=== PATIENT | male | born 1960 | race Caucasian/White ===

== ENCOUNTER → 2020-07-06 11:25 | Outpatient (BNVA) | payer OTHER, SELFPAY | PROVIDERS: Referring Provider Internal Medicine; Visit Provider Internal Medicine Cardiovascular Disease | DX: I13.0 Hypertensive heart and chronic kidney disease with heart failure and stage 1 through stage 4 chronic kidney disease, or unspecified chronic kidney disease (principal); I50.33 Acute on chronic diastolic (congestive) heart failure; N18.9 Chronic kidney disease, unspecified; R60.9 Edema, unspecified; Z79.01 Long term (current) use of anticoagulants; R06.02 Shortness of breath; R07.89 Other chest pain; I25.10 Atherosclerotic heart disease of native coronary artery without angina pectoris; E78.5 Hyperlipidemia, unspecified | CPT/HCPCS: 80048; 83880; 84443; 85025 ==

== ENCOUNTER 2020-08-04 08:22 | Outpatient (CLI) | payer OTHER, SELFPAY ==
--- NOTE | 2020-08-04 09:04 | ECG_ITS ---
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 Interpretive Statements NAME OF STUDY: LEXISCAN SESTAMIBI STRESS TEST INDICATION: Chest Pain, PROCEDURE: At the baseline, the EKG revealed sinus bradycardia with right bundle branch block. Nonspecific ST-T changes in the precordial leads. Left axis deviation. The baseline blood pressure was 139/88 mm Hg with a heart rate of 53 beats/min. Lexiscan was infused over a period of 20 seconds. A total of 0.4 milligrams of Lexiscan was infused. The stress phase was continued for a total of 5 minutes. Heart rate at the end of the stress phase was 67 with a blood pressure 137/76. The EKG at the peak infusion revealed no significant changes. Sestamibi was injected 20 seconds after the Lexiscan infusion. Blood pressure at the end of the recovery phase was 146/83 with a heart rate of 66 per minute. CONCLUSION: 1. No significant EKG changes with the LexiScan infusion 2. No LexiScan induced chest pain or cardiac arrhythmia 3. Normal blood pressure and heart rate response 4. Sestamibi/sestamibi perfusion scan pending; see separate report. Electronically Signed On 08-11-2020 9:02:17 CDT by Dorian Sapp M.D. [id number]
--- NOTE | 2020-08-04 09:05 | NMCV_ITS ---
NM chani perf SPECT r/s* [id number] Atul Fong Age: 60 Gender: M : 1960 Exam Date: 08/04/2020 10:23 Ordering Phys: Dorian Sapp MD ([email or web address]) Technologist: DAVE Roman Exam Location: [facility] Indications: CHEST PAIN STRESS TEST Please [facility] IMAGE PROTOCOL Rest/Stress 1 Lexiscan Day Radiopharmaceutical Dose (mCi) Administration Site Administered by Rest: Tc-99m 10.6 IV DAVE Roman Sestamibi Stress:Tc-99m 33.0 IV DAVE Lovelace Sestamibi Rest: 04-Aug-2020 60 Discovery 630 Stress: 04-Aug-2020 30 Discovery 630 0.4mg Lexiscan. Images obtained in supine and prone position. SPECT RESULTS Technical Quality: Good Raw Data Analysis: Normal Image Corrections: No attenuation or motion correction applied Summed Stress Score: 9 Summed Rest Score: 3 Summed Difference Score: 6 PERFUSION FINDINGS Moderate to large areas of slightly decreased tracer uptake was noted in the basal and mid inferolateral, anterolateral, mid anterior and mid inferior wall regions. Some reversibility was noted in the inferolateral and anterolateral regions with the supine imaging. However the prone imaging, no significant reversible defects were noted. FUNCTIONAL RESULTS (calculated via Gated SPECT) Stress Image LV EF (%): 65 Stress EDV (mL):135 TID: 1.05 Stress ESV (mL):47 FUNCTIONAL FINDINGS: Segmental wall motion analysis revealing no gross wall motion abnormalities. IMPRESSIONS 1. Myocardial perfusion imaging revealing inconsistent areas of reversible defect in the anterolateral and inferolateral wall regions, possibly related to attenuation artifacts. 2. Normal LV ejection fraction of 65%. 3. LV wall motion analysis revealing no gross wall motion normalities. 4. LV volume, upper limit of normal. Possibly no significant coronary ischemia, based on above findings Dr Dorian Sapp MD [facility] (Electronically Signed) Final Date: 04 August 2020 16:58 S
[2020-08-04 09:49] VITALS: BMI 40.5
[2020-08-04] MEDS: regadenoson 0.4 Mg/5 ml Syringe IVP (10:59)
[2020-08-04 12:12] VITALS: BP 146/83; PULSE 67
--- NOTE | 2020-08-04 13:30 | USCV_ITS ---
Atul Fong Age: 60 Gender: M : 1960 Exam Date: 08/04/2020 12:06 Ordering Phys: Dorian Sapp MD ([email or web address]) Technologist: Cele Arana Exam Location: [facility] [place] Indication: OTHER CHEST PAIN BP: / HR: 57 Rhythm: Sinus Technical Quality: Adequate MEASUREMENTS (Male / Female) Normal Values 2D ECHO LV Diastolic Diameter PLAX 3.9 cm 4.2 - 5.9 / 3.9 - 5.3 cm LV Systolic Diameter PLAX 2.9 cm LV Chamber Size 2.3 cm IVS Diastolic Thickness 1.8 cm 0.6 - 1.0 / 0.6 - 0.9 cm IVS Systolic Thickness 1.5 cm LVPW Diastolic Thickness 2.5 cm 0.6 - 1.0 / 0.6 - 0.9 cm LVPW Systolic Thickness 2.9 cm RV Chamber Size 1.5 cm LVOT Diameter 2.1 cm LV Ejection Fraction 2D Teich 53.2 % LA Diameter 3.9 cm LA Width 3.5 cm LA Height 4.2 cm RA Width 3.5 cm RA Height 3.9 cm Aorta at Sinotubular Diameter 2.8 cm M-MODE LV Diastolic Diameter MM 6.7 cm 4.2 - 5.9 / 3.9 - 5.3 cm LV Systolic Diameter MM 3.5 cm LV Ejection Fraction MM Teich 78.4 % IVS Diastolic Thickness MM 1.2 cm 0.6 - 1.0 / 0.6 - 0.9 cm IVS Systolic Thickness MM 1.6 cm LVPW Diastolic Thickness MM 0.7 cm 0.6 - 1.0 / 0.6 - 0.9 cm LVPW Systolic Thickness MM 1.5 cm Aortic Annulus Diameter 3.6 cm LA Ao Ratio MM 1.2 MV E Point Septal Separation 0.7 cm DOPPLER AV Peak Velocity 155.0 cm/s LVOT Peak Velocity 113.0 cm/s AV Area Cont Eq vti 3.2 cm squared AV Area Cont Eq pk 2.5 cm squared MV Area PHT 2.5 cm squared Mitral E to A Ratio 0.7 MV E' Velocity 38.0 cm/s Mitral E to MV E' Ratio 6.4 Mitral E to LV E' Lateral Ratio 6.2 Mitral E to LV E' Septal Ratio 6.7 TR Peak Velocity 180.3 cm/s TR Peak Gradient 13.0 mmHg TV Peak E Velocity 81.0 cm/s PV Peak Velocity 75.0 cm/s RV Acceleration Time 0.1 s RV Ejection Time 0.3 s RV AcT/ET 0.4 FINDINGS Left Ventricle Normal left ventricular size and systolic function, EF 65%.no regional wall motion abnormalities. Grade I/IV diastolic dysfunction (abnormal relaxation filling pattern), normal to mildly elevated filling pressures. Mild concentric left ventricle hypertrophy Right Ventricle The right ventricle is normal in size and function. Right Atrium The right atrium is normal in size. Left Atrium Normal left atrial size. Mitral Valve Minimally thickened anterior mitral leaflet Aortic Valve No gross abnormalities noted Tricuspid Valve No gross abnormalities noted Pulmonic Valve Pulmonic valve not well visualized. Pericardium Normal pericardium without effusion. Aorta Normal ascending aorta dimension. CONCLUSIONS Normal left ventricular size and systolic function, EF 65%.no regional wall motion abnormalities. Grade I/IV diastolic dysfunction (abnormal relaxation filling pattern), normal to mildly elevated filling pressures. Minimally thickened anterior mitral leaflet. No significant stenotic or regurgitant lesions. Normal cardiac chamber sizes. There is no pericardial effusion. There are no intracardiac masses. No previous study is available for comparison. Dr Dorian Sapp MD FAC (Electronically Signed) Final Date: 04 August 2020 17:21 S
== END 2020-08-04 08:23 | disposition home or self-care (01) ==
LOC: RAD 08:23 → CDL 09:06
PROVIDERS: Visit Provider Internal Medicine Cardiovascular Disease
DX: R07.89 Other chest pain (principal)
CPT/HCPCS: 78452; 93017; 93306; A9500; J2785

== ENCOUNTER → 2020-12-20 15:13 | Outpatient (BNVA) | payer OTHER, SELFPAY | PROVIDERS: Visit Provider Internal Medicine Cardiovascular Disease | DX: Z01.818 Encounter for other preprocedural examination (principal); R07.89 Other chest pain; R07.9 Chest pain, unspecified; R06.02 Shortness of breath; Z79.01 Long term (current) use of anticoagulants; R53.1 Weakness; I25.10 Atherosclerotic heart disease of native coronary artery without angina pectoris; R60.9 Edema, unspecified; E78.5 Hyperlipidemia, unspecified; I10 Essential (primary) hypertension | CPT/HCPCS: 80053; 85025; 85610; 86850; 86900; 87635 ==

== ENCOUNTER 2020-12-23 10:44 | Day surgery (SDC) | payer OTHER, SELFPAY ==
[2020-12-23] VITALS (36 sets, daily range): BP systolic 108–165; BP diastolic 58–103; PULSE 42–51; RESP 11–22; TEMP 36.7; O2SAT 92–99; BMI 42.4
--- NOTE | 2020-12-23 11:32 | XACV_ITS ---
Exam Room: 1 Ht: 183 cm Wt: 142 kg BSA: 2.75 m2 Gender: Male : 1960 Any Known Allergies: No known allergies Exam Priority: Routine Procedure(s): Procedure Description: Diagnostic procedure Procedure Description: PCI procedure Procedure Description: Left Heart Catheterization Procedure Description: Left ventriculography Procedure Description: Drug Eluting Coronary Stent Procedure Description: PTCA Procedure Description: Coronary Angiography Diagnostic Cath Status: Elective Diagnostic Findings * Coronary angiography shows right dominance. * The left main is a medium caliber vessel with no significant stenotic lesion. * The left anterior descending artery is a medium caliber vessel which appears to wrap around the LV apex. Proximally LAD was found to have around 50% eccentric narrowing. Mid LAD was found to have a long stented segment. In the proximal part of the stent, there is around 40% in-stent narrowing. The distal part of the stented segment was found to have around 70 to 80% in-stent stenosis. This area was found to be hazy. The ostium of the first septal mid wife was found to have around 50% narrowing. The first diagonal branch also was found to have around 50 to 60% ostial narrowing. This appears to be a jailed lesion. The LAD distally was found to have minimal intimal irregularities. * The left circumflex artery is a medium caliber nondominant vessel which gives of a high obtuse marginal branch. The circumflex proper and the first obtuse marginal branches were found to have mild diffuse intimal regularities with no significant stenotic lesions. * The right coronary artery is a medium caliber dominant vessel which was found to have mild diffuse disease in the proximal segment and also in the PLV branch. No significant stenotic lesions were noted. PCI Status: Elective PCI Indication: New Onset Angina <= 2 months Interventional Findings * Proximal Left Anterior Descendin% stenosis treated with a AB TREK 2.50X12 RX BALLOON, ROSA MARIA R ELZA 3.0X18 MONICA, and ROSA MARIA COTA EUPHORA RX 3.76Q99CR BALLOON. 0% residual stenosis, JULISSA: 3 flow. Conclusions 1. Normal left ventricular systolic function. Ejection fraction of 50%. 2. This is a 60-year-old white male with history of hypertension, dyslipidemia and atherosclerotic heart disease, status post PCI of the LAD, presenting with increasing episodes of chest pain and shortness of breath. He had a myocardial perfusion imaging , few months ago which was unremarkable. In view of the patient ongoing worsening of symptoms, for further evaluation of his coronary status, a cardiac catheterization was recommended. Patient underwent left heart catheterization with left and right coronary angiogram and LV angiogram today. The findings are as follows. 3. High-grade in-stent stenosis in the mid LAD. Mild to moderate disease in the proximal to mid LAD. Mild diffuse disease in the other vessels. LV ejection fraction of 50% with a mild diffuse hypokinesia of the anteroapical region. LVEDP of 14 mmHg. 4. Proximal Left Anterior Descending was treated with a Balloon, Drug Eluting Stent, and Balloon. Recommendations * 1-Return to inpatient for close monitoring and routine cath care2-Risk factor modification for secondary prevention3-Statin and aspirin 81 mg life--long, if tolerated * 4- * C * continue Plavix 75mg p.o. daily for at least one year. We will assess at the end of one year again to continue if further or not * 5-Continue optimal medical management * 6-Follow up with Dr. Katya Sapp * in four weeks and your primary care in 10 days. Diagnostic RX Recommendation: PCI w/o planned CABG Ventriculography Ejection Fraction: 50.0 % LV EDP: 14 mmHg Left Ventriculography Findings: * LV gram was performed in the HERNANDEZ position. The LV cavity is of normal size. There is mild diffuse hypokinesia of the anteroapical region. The overall ejection fraction is around 50%. Pressures Phase:Rest AO : 138 / 80 ( 95 ) @ 11:42:00 AM 129 / 96 ( 103 ) @ 11:44:00 AM 139 / 90 ( 110 ) @ 11:49:00 AM 119 / 19 ( 37 ) @ 11:55:00 AM 118 / 58 ( 82 ) @ 12:09:00 PM 118 / 79 ( 79 ) @ 12:10:00 PM 113 / 56 ( 78 ) @ 12:12:00 PM LV : 120 / -6 / 14 @ 11:54:00 AM 116 / -11 / 15 @ 11:55:00 AM Clinical Evaluation EBL: 5mL-10mL Procedural Details Pre-Procedure Time Out. Identified patient by full name and date of as verbalized by the patient/guarantor. Does the consent match the physician's order: Yes. Accurate & Complete Informed Consent: Yes. Inpatient/Outpatient History & Physical on Chart: Yes. If H&P is completed, is and addenduem needed: No; If yes, is the addendum complete: N/A. Visualize and Verify Site with Patient/Guarantor: N/A. Relevant Radiology Images available: Yes. Pre-op teaching completed and patient verbalized understanding. The risks, benefits, and alternatives of sedation and/or procedure were discussed by physician. The patient agrees to continue. Procedure started. [facility] Clinical Fraility Score: 3: Managing Well. Park Interpretive Specialist Indications: Suspected CAD. Chest Pain Symptom Assessment: Typical Angina Symptoms. Correct patient, site and procedure confirmed by cath team. Current diagnosis: Chest Pain. PERRLA. Strong, equal hand planer off bearer bilaterally. Lungs clear x 5 lobes. IV Site on Arrival: 18 gauge in the left anticubital. IV Fluids: 0.9% NaCl at KVO. 0 mL infused prior to cardiac cath technician. Pre Procedural Pulses: right dorsalis pedis was 2+. Pre Procedural Pulses: left dorsalis pedis was 1+. Pre Procedural Pulses: right posterior tibial was 2+. Pre Procedural Pulses: left posterior tibial was 1+. Pre Procedural Pulses: bilateral radial was 2+. Oxygen started at 2liters/min via nasal canula. right groin was prepped with chloroprep then draped in the usual sterile fashion. Baseline sample Acquired. HR: 44 BPM. right radial was prepped with chloroprep then draped in the usual sterile fashion. Current Diagnosis : Chest Pain. Physician arrived. Physician scrubbed in. Immediate Pre-Procedure Time Out. Correct Patient: Yes; Correct Procedure: Yes; Correct Site: Yes; Correct Patient Position: Yes; Correct Supplies: Yes; Dried Flammable Prep: Yes; Blood Products Available: N/A;. Lidocaine 1% infiltrated to the right radial. Arterial access obtained. A 5 danish Arpit catheter in over wire. Catheter removed over the exchange wire. A 5 danish TIG catheter in over wire. Catheter removed over the exchange wire. A 5 danish Aprit catheter in over wire. Catheter removed over the exchange wire. TR band placed. Hemostasis obtained. A TR Band was successful obtaining hemostatsis at the Right Radial artery insertion site. Lidocaine 1% infiltrated to the right groin. Arterial access obtained with micropuncture set. A 5 danish JL4 catheter in over wire. Multiple views taken of left coronary artery. Dr. Alegre called to review films. Catheter removed over the standard wire. Catheter removed over the standard wire. A 5 danish JR4 catheter in over wire. Multiple views taken of right coronary artery. Catheter removed over the standard wire. A 5 danish Angled Pig catheter in over wire. Dr. Alegre arrived. EDP Sample taken: LV 120/-7,14; HR: 32 BPM; SpO2: 98%. LV gram performed in HERNANDEZ @ 10 mL/second for a total of 30 mL. EDP Sample taken: LV 116/-12,15; HR: 46 BPM; SpO2: 98%. Pullback taken: LV Off; AO Off; Mean: , Peak to Peak: , SEP: ; HR: 40 BPM; SpO2: 98%. Catheter removed over the standard wire. Dr. Alegre scrubbed in to perform intervention. right groin was prepped with chloroprep then draped in the usual sterile fashion. Sheath upsized to a 6 Fr. 6 danish XB 3.5 guide catheter was inserted over the wire. Lidocaine 1% infiltrated to the right groin. [place] guidewire was advanced through the guide catheter to lesion in the mid LAD. Inflation number : 1 A AB TREK 2.50X12 RX BALLOON was prepped and advanced across the Mid LAD , then inflated to 12 GORAN for 0:15 seconds. Balloon out. Inflation Number : 2 A ROSA MARIA Brooke ELZA 3.0X18 MONICA -Lot Number# [id number] was prepped and advanced across the Mid LAD. The stent was deployed at 12 GORAN for 0:27 seconds. Stent balloon out over wire. Inflation number : 3 A MDT BEATA EUPHORA RX [id number] BALLOON was prepped and advanced across the Mid LAD , then inflated to 10 GORAN for 0:25 seconds. Balloon and wire out. Results checked. Guide catheter out. Sheath(s) sutured into position with 2-0 silk and sterile 4x4's and Op-site applied over the site. No oozing or signs and symptoms of hematoma noted. Arterial sheath flushed and connected to tranducer and pressure bag with heparinized saline. Post Procedure: Pulses reassessed and unchanged. PERRLA. Strong, equal hand planer off bearer bilaterally. No VTE prophylaxis required. Medication's Wasted: Heparin = 2000 units. ACT drawn. Results 220 seconds. Therapeutic limits - pre-heparin administration 90-150 seconds and monitoring heparin during a vascular procedure >250 seconds. Medication's Wasted: Lidocaine 1% = 14 mL. Medication's Wasted: Nitro = 49.6 mg. Total IV fluids: 325 mL. Contrast type used: Omnipaque 300 mgI/mL, 500 mL bottle. Complications: None. Estimated blood loss: 5mL-10mL. Procedure completed. A Suture was successful obtaining hemostatsis at the Right Femoral artery insertion site. Patient transferred by bed to 1st floor. Vital chart was stopped. Access Site Site: Right Radial artery Sheath Size: 6 Fr Hemostasis Method: TR Band Hemostasis Success: Successful Site: Right Femoral artery Sheath Size: 5 Fr Hemostasis Method: Suture Hemostasis Success: Successful Procedure Medications Start: 12:03 PM Stop: 12:03 PM Medication: Versed 1 mg and Fentanyl 25 mcg Amount: 1 Route: I.V. Start: 12:08 PM Stop: 12:08 PM Medication: Versed Amount: 1 mg Route: I.V. Start: 12:10 PM Stop: 12:10 PM Medication: 0.9% Saline Amount: 250 ml Route: I.V. bolus Start: 12:12 PM Stop: 12:12 PM Medication: Verapamil Amount: 5 mg Route: I.A. Start: 12:12 PM Stop: 12:12 PM Medication: Nitrogylcerin Amount: 200 mcg Route: I.A. Start: 12:12 PM Stop: 12:12 PM Medication: Fentanyl Amount: 25 mcg Route: I.V. Start: 12:14 PM Stop: 12:14 PM Medication: Versed Amount: 1 mg Route: I.V. Start: 12:15 PM Stop: 12:15 PM Medication: Heparin Amount: 5000 units Route: I.V. Start: 12:21 PM Stop: 12:21 PM Medication: Fentanyl Amount: 25 mcg Route: I.V. Start: 12:27 PM Stop: 12:27 PM Medication: Versed Amount: 1 mg Route: I.V. Start: 12:33 PM Stop: 12:33 PM Medication: Fentanyl Amount: 25 mcg Route: I.V. Start: 12:38 PM Stop: 12:38 PM Medication: Versed Amount: 1 mg Route: I.V. Start: 12:44 PM Stop: 12:44 PM Medication: Versed Amount: 1 mg Route: I.V. Start: 12:53 PM Stop: 12:53 PM Medication: Versed Amount: 1 mg Route: I.V. Start: 1:04 PM Stop: 1:04 PM Medication: Plavix Amount: 600 mg Route: P.O. Start: 1:05 PM Stop: 1:05 PM Medication: Versed Amount: 1 mg Route: I.V. Start: 1:07 PM Stop: 1:07 PM Medication: Heparin Amount: 7000 units Route: I.V. Start: 1:11 PM Stop: 1:11 PM Medication: Aggrastat 12.5 mg/250 mL Amount: 72.5 ml Route: I.V. bolus Start: 1:11 PM Stop: 1:11 PM Medication: Aggrastat 12.5 mg/250 mL Amount: 26.1 ml/hr Route: I.V. bolus Start: 1:20 PM Stop: 1:20 PM Medication: Nitrogylcerin Amount: 200 mcg Route: I.C. I, the attending physician, have reviewed and verified all procedure medications. Yes, all medications given per verbal order History/Risk Factors Hypertension: Yes Peripheral Arterial Disease (PAD): No Obesity: Yes Renal Disease: No Tobacco Use: Current/Recent(w/in 1 year) Prior Interventions PCI: Yes CABG: No Valve Surgery: No Report Signatures Interventional Workflow Finalized by Richmond Alegre MD on 01/05/2021 07:58 PM Diagnostic Workflow Finalized by Dr Dorian Sapp MD [facility] on 12/23/2020 04:21 PM
[2020-12-23] MEDS: diphenhydrAMINE 50 mg Capsule PO (11:44)
--- NOTE | 2020-12-23 11:55 | W.PM.OPSUD ---
Surgery/Procedure H&P Update DATE OF PROCEDURE: December 23, 2020 DATE H&P PERFORMED: 12/20/20 H&P UPDATE INFORMATION: I have reviewed H&P completed within last 30 days, I have examined patient prior to procedure and No changes to prior documentation PREOP DIAGNOSIS: ASHD PRIMARY INDICATION FOR PROCEDURE: Increasing chest pain or shortness of breath, history of coronary artery disease. Unremarkable myocardial perfusion imaging PLANNED PROCEDURE: Operation Date: 12/23/20 12:00 Proposed Procedures p Cardiac Catheterization left(Left) - Dorian Sapp MD PATIENT REASSESSED PRIOR TO SEDATION, WITH NO CHANGE NOTED: Yes PHYSICAL EXAM: alert, oriented x 3, clear to auscultation bilaterally and regular rate & rhythm AIRWAY EVAL/ANESTHESIA PLAN: normal airway, see other exam findings, ASA III, Monitored Anesthesia, Local Anesthesia, Risks, benefits & alternatives of sedation and/or procedure discussed and Patient agrees to continue as planned
--- NOTE | 2020-12-23 15:30 | PC.NURSE ---
Aggrastat infusion turned off.
--- NOTE | 2020-12-23 17:39 | PC.NURSE ---
1730 PTT still pending.
[2020-12-23 17:56] LABS: Partial Thromboplastin Time 40.5 SECONDS (23.9-36.7)
--- NOTE | 2020-12-23 18:44 | PC.NURSE ---
Initiated sheath pull at 1808 per protocol using aseptic technique. Hemostasis achieved immediately. Maintained pressure to right groin for 20min. No s/s of bleeding or hematoma formation observed. Covered site with 2x2 and bio-occlusive dressing. Instructed patient on site care and restrictions. Patient verbalized complete understanding. Began removing air from TR band at 1800. Have removed total of 11ml of air at this time. TR band remain in place presently. No s/s of bleeding or hematoma formation observed.
--- NOTE | 2020-12-23 19:43 | PC.NURSE ---
TR band removed at this time. No s/s of bleeding or hematoma formation observed. Dressing applied to right wrist. Instructed patient on site care. Patient verbalized complete understanding. Right femoral site remains c,d,i with no s/s of bleeding or hematoma formation observed. Patient does c/o tenderness directly over incision site with palpation.
[2020-12-24] VITALS (7 sets, daily range): BP systolic 123–163; BP diastolic 70–99; PULSE 43–58; RESP 12–20; TEMP 36.7; O2SAT 95–98
--- NOTE | 2020-12-24 00:56 | PC.NURSE ---
Patient up to ambulate. Dressing to right groin remains c,d,i with no s/s of bleeding or hematoma formation oberved.
[2020-12-24 05:16] LABS: Basophils % 0.2 %; Eosinophils # 0.2 10^3/uL (0.0-0.8); Eosinophils % 2.3 %; Hematocrit 39.3 % (42.0-52.0); Lymphocytes # 1.3 10^3/uL (0.8-4.8); Lymphocytes % 19.1 %; Mean Corpuscular HGB Conc 33.1 g/dL (30.0-36.0); Mean Corpuscular Hemoglobin 29.3 pg (28.0-34.0); Mean Corpuscular Volume 88.5 fL (80-94); Mean Platelet Volume 8.9 fL (7.4-10.4); Monocytes # 0.5 10^3/uL (0.2-0.9); Neutrophils # 4.65 10^3/uL (1.8-7.7); Neutrophils % 69.9 %; Nucleated Red Blood Cells % 0 %; Platelet Count 154 10^3/cmm (130-400); Red Blood Count 4.44 10^6/uL (4.1-5.3); Red Cell Distribution Width 12.7 % (12.1-15.1); White Blood Count 6.6 10^3/uL (4.0-10.0)
[2020-12-24 05:56] LABS: Anion Gap 13.8 (5-19); Blood Urea Nitrogen 16 mg/dL (6-20); Calcium 8.9 mg/dL (8.5-10.5); Carbon Dioxide 25 mmol/L (22-29); Chloride 102 mmol/L (98-107); Glomerular Filtration Rate 99.3 mL/min (90-130); Glucose 86 mg/dL (65-115); Osmolality Calculated 284 mOsm/kg (285-295); Potassium 3.8 mmol/L (3.5-5.1); Sodium 137 mmol/L (136-145)
[2020-12-24] MEDS: cholecalciferol (vitamin D3) 1,000 unit Tablet 1000 UNIT PO (08:30)
[2020-12-24] MEDS: pantoprazole DR 40 mg Tablet PO (08:31)
[2020-12-24] MEDS: CLONazepam 1 mg Tablet PO (08:31)
[2020-12-24] MEDS: aspirin 325 mg Tablet PO (08:31)
[2020-12-24] MEDS: lisinopril 20 mg Tablet 40 MG PO (08:31)
[2020-12-24] MEDS: chlorthalidone 25 mg Tablet PO (08:32)
[2020-12-24] MEDS: amlodipine 5 mg Tablet PO (08:32)
[2020-12-24] MEDS: clopidogrel 75 mg Tablet PO (08:32)
[2020-12-24] MEDS: cetirizine 10 mg Tablet PO (08:32)
--- NOTE | 2020-12-24 14:04 | P.DS_ITS ---
Discharge Providers Date of Discharge: December 24, 2020 Attending Provider at Discharge: Dorian Sapp MD Reason for Visit Reason for Visit: left heart cath Brief History: 60-year-old male past medical history significant for coronary artery disease hypertension hyperlipidemia for worsening of symptoms highly suspicious for coronary etiology was taken to the [facility] by Dr. Sapp yesterday as outpatient, he was noted to have significant hazy mid LAD stenosis distal to the prior stent. I was asked to intervene on it. Since it was significant and hazy highly suspicious stenosis it was treated with balloon angioplasty followed by drug-eluting stent. Drug-eluting stent was then postdilated with noncompliant balloon. Excellent angiographic result with JULISSA-3 flow was achieved in the LAD. Overnight no events noted. Right groin looks good with minor bruising. Patient was loaded with Plavix yesterday. He appeared to be stable vital zhang, denies any complaint. He is being discharged home. He will be followed by cardiology clinic. Hospital Course Hospital Course As above Physical Exam Narrative: EXAM NARRATIVE: GENERAL: Patient is alert, awake and oriented x3. NECK: No jugular vein distension. HEENT: No cyanosis. No icterus. No pallor. HEART: Regular S1 and S2. No murmur, rub or gallop. LUNGS: Clear to auscultate bilaterally. ABDOMEN: Soft, nontender and nondistended. Positive bowel sounds. No guarding, rebound or tenderness. CENTRAL NERVOUS SYSTEM: Grossly nonfocal. EXTREMITIES: Lower extremities without edema bilaterally. Right groin mild bruising no hematoma. Discharge Data Data Completed and Pending: Pending at discharge Category Date Time Status [employer] request for service Routin e Exams 12/23/20 11:32 Ordered Labs from last 24 hours 12/24/20 12/24/20 12/23/20 04:44 04:44 17:14 WBC 6.6 RBC 4.44 Hgb 13.0 Hct 39.3 L MCV 88.5 MCH 29.3 MCHC 33.1 RDW 12.7 Plt Count 154 MPV 8.9 Neut % (Auto) 69.9 Lymph % (Auto) 19.1 Travis % (Auto) 8.0 Eos % (Auto) 2.3 Baso % (Auto) 0.2 Neut # (Auto) 4.65 Lymph # (Auto) 1.3 Travis # (Auto) 0.5 Eos # (Auto) 0.2 Baso # (Auto) 0.0 Nucleated RBC % (a uto) 0 Nucleated RBCs # 0.0 APTT 40.5 H Sodium 137 Potassium 3.8 Chloride 102 Carbon Dioxide 25 Anion Gap 13.8 BUN 16 Creatinine 0.8 GFR Calculation 99.3 Glucose 86 Calculated Osmolal ity 284 L Calcium 8.9 Vitals: Last Vital Signs Temp 98.1 F 12/24/20 11:30 Pulse 47 L 12/24/20 11:30 Resp 20 H 12/24/20 11:30 BP 130/73 12/24/20 11:30 Pulse Ox 95 12/24/20 11:30 Discharge Plan Discharge Patient Disposition: Home Condition: Stable Prescriptions: New clopidogrel 75 mg Tablet 75 mg PO DAILY Qty: 90 RF: 4 pantoprazole 40 mg tablet,delayed release (DR/EC) 40 mg PO DAILY 56 Days RF: 1 Continued atorvastatin 80 mg tablet 80 mg PO DAILY RF: 0 cholecalciferol (vitamin D3) 25 mcg (1,000 unit) capsule 25 mcg PO DAILY RF: 0 clonazepam 1 mg tablet 1 mg PO BID RF: 0 fluoxetine 20 mg capsule 20 mg PO DIRECTED RF: 0 cetirizine 10 mg tablet 10 mg PO DAILY RF: 0 lisinopril 40 mg tablet 40 mg PO DAILY 30 Days Qty: 30 RF: 3 chlorthalidone 25 mg tablet 25 mg PO DAILY 30 Days Qty: 30 RF: 5 amlodipine 5 mg tablet 5 mg PO DAILY 30 Days Qty: 30 RF: 5 nitroglycerin 0.4 mg tablet, sublingual 0.4 mg sublingual Q5M PRN (Reason: chest pain) 30 Days Qty: 30 RF: 3 carvedilol 25 mg tablet 25 mg PO BID RF: 0 Changed aspirin 325 mg tablet 81 mg PO DAILY Qty: 90 RF: 4 Discontinued omeprazole 20 mg capsule,delayed release(DR/EC) 20 mg PO DAILY RF: 0 Discharge Orders: Discharge Order (Routine); Ordered 12/24/20 Ordered By: Richmond Alegre Discharge Diet: Cardiac Discharge Activity: Increase activity as tolerated Patient Instructions: Left Heart Catheterization (DC), Coronary Angioplasty (DC) Activity Restrictions/Additional Instructions: Follow-up with Andreia Wyatt cardiology nurse practitioner in 7 days. Follow-up with Dr. Sapp in 4 weeks. Please continue Plavix and aspirin without interruption for 2-year. Please continue rest of the medicines as it is Discharge Attestations Time Spent in Discharge Care*: greater than 30 min Specific Discharge Activities: educating patient Quality Metrics Clinical Quality Measures During this hospital stay, did patient experience: None Coding Level of Care Code New Pt Acute Chg FW DC note Patient Type New History Detailed Exam Detailed Medical Decision Making Moderate Complexity
--- NOTE | 2020-12-24 15:58 | PC.NURSE ---
Patient called to U stating he was able to get his plavix at the [facility] pharmacy, but that the prescription for pantoprazole did not go through. I called the presciption to [facility] pharmacy at [facility].
== END 2020-12-24 15:00 | disposition home or self-care (01) ==
LOC: CCL 16:06 → CSU 12-24 06:53
PROVIDERS: Internal Medicine Cardiovascular Disease; Visit Provider Internal Medicine Cardiovascular Disease
DX: I25.10 Atherosclerotic heart disease of native coronary artery without angina pectoris (principal); I10 Essential (primary) hypertension; E78.5 Hyperlipidemia, unspecified; Z79.82 Long term (current) use of aspirin; F17.290 Nicotine dependence, other tobacco product, uncomplicated
CPT/HCPCS: 36415; 80048; 85025; 85347; 85730; 93452; C1725; C1769; C1874; C1887; C1894; C9600; J1644; J2250; J3010; J3246; J3490; J7030; Q0163; Q9967

== ENCOUNTER → 2020-12-30 10:50 | Outpatient (BNVA) | payer OTHER, SELFPAY | PROVIDERS: Visit Provider Nurse Practitioner Family | DX: I25.10 Atherosclerotic heart disease of native coronary artery without angina pectoris (principal); I10 Essential (primary) hypertension | CPT/HCPCS: 80048 ==

== ENCOUNTER → 2021-03-16 11:10 | Outpatient (BNVA) | payer OTHER, SELFPAY | PROVIDERS: Visit Provider Internal Medicine Cardiovascular Disease | DX: I50.33 Acute on chronic diastolic (congestive) heart failure (principal); R07.89 Other chest pain; R06.02 Shortness of breath | CPT/HCPCS: 80048; 83880; 86141 ==

== ENCOUNTER → 2021-09-20 13:27 | Outpatient (BNVA) | payer OTHER, SELFPAY | PROVIDERS: Visit Provider Nurse Practitioner Family | DX: I25.118 Atherosclerotic heart disease of native coronary artery with other forms of angina pectoris (principal); I10 Essential (primary) hypertension; F17.290 Nicotine dependence, other tobacco product, uncomplicated | CPT/HCPCS: 93005; 99214 ==

== ENCOUNTER → 2022-03-22 10:37 | Outpatient (BNVA) | payer OTHER, SELFPAY | PROVIDERS: Visit Provider Internal Medicine Cardiovascular Disease | DX: I25.118 Atherosclerotic heart disease of native coronary artery with other forms of angina pectoris (principal); R07.89 Other chest pain; I10 Essential (primary) hypertension; E78.5 Hyperlipidemia, unspecified; Z95.1 Presence of aortocoronary bypass graft | CPT/HCPCS: 99214 ==

== ENCOUNTER 2022-03-26 07:13 | Day surgery (SDC) | payer OTHER, SELFPAY ==
[2022-03-22 14:50] VITALS: BMI 44.0
[2022-03-26 07:54] VITALS: BP 136/81; PULSE 51; RESP 18; TEMP 36.4; O2SAT 98
--- NOTE | 2022-03-26 07:57 | W.PM.OPSFHP ---
Same Day Surgery H&P Indication for Procedure/HPI DATE OF PROCEDURE: March 26, 2022 CHIEF COMPLAINT/INDICATIONFOR SURGICAL PROCEDURE: Reflux and history of reflux and a history of polyps PREOP DIAGNOSIS: hematochezia, gerd PLANNED PROCEDURE: Operation Date: 03/26/22 09:00 Proposed Procedures p [id number], [id number](Not Applicable) - Farrukh Post MD s Colonoscopy(Not Applicable) - Farrukh Post MD Medications/Allergies* Home Medications Medication Instructions Recorded Confirmed Type atorvastatin 80 mg tablet 80 mg PO DAILY 07/06/20 03/22/22 History cetirizine 10 mg tablet 10 mg PO DAILY 07/06/20 03/22/22 History cholecalciferol (vitamin D3) 25 25 mcg PO DAILY 07/06/20 03/22/22 History mcg (1,000 unit) capsule carvedilol 25 mg tablet 25 mg PO BID 08/10/20 03/22/22 History lisinopril 40 mg tablet 20 mg PO DAILY 03/16/21 03/22/22 History clonazepam 1 mg tablet 1 mg PO BID PRN Anxiety 09/20/21 03/22/22 History fluoxetine 20 mg capsule 60 mg PO DAILY 03/21/22 03/22/22 History amlodipine 5 mg tablet 5 mg PO DAILY 03/22/22 03/22/22 History bupropion HCl 100 mg tablet 100 mg PO DAILY 03/22/22 03/22/22 History clopidogrel 75 mg tablet 75 mg PO DAILY 03/22/22 03/23/22 History hydrocortisone 2.5 % topical cream 1 applic topical BID PRN itching 03/22/22 03/23/22 History Allergies/Adverse Reactions Allergy/AdvReac Type Severity Reaction Status Date / Time No Known Allergies Allergy Verified 03/22/22 07:20 Pertinent History/Comorbid Conditions* Medical History (Updated 03/21/22 @ 13:47 by Farruhk Post MD) Benign essential HTN Chronic low back pain History of agoraphobia History of cellulitis History of panic disorder History of posttraumatic stress disorder (PTSD) Hx of angina pectoris Hx of anxiety disorder Hx of chest pain Hx of essential hypertension Hx of gastroesophageal reflux (GERD) Hx of hiatal hernia Hx of hyperlipidemia Hx of insomnia Hx of migraine headaches Hx of obesity Hx of osteoarthritis Hx of smoking Xanthelasma Surgical History (Updated 07/06/20 @ 10:59 by Dorian Sapp MD) H/O total knee replacement History of PTCA Hx of CABG Hx of elbow surgery Hx of hammer toe correction Hx of inguinal hernia repair Hx of shoulder surgery Family History (Updated 12/20/20 @ 14:23 by Morena Wren RN) CAD (coronary artery disease) Sister Mother Family/Other Grandfather Grandmother Dementia Mother Cancer Sister Family/Other Denies family history of Diabetes Clotting disorder Chronic kidney disease (CKD) Suicide Anesthesia complication Bleeding disorder Lung disease Stroke Social History Smoking and tobacco status: never smoked Alcohol intake: former Pertinent Exam Findings alert, oriented x 3, clear to auscultation bilaterally, regular rate & rhythm, operative site marked and procedure specific exam findings Recommendations Surgery/Procedure today Coding Level of Care Code Acute Oxygen Tank Filler for Franko Keating
[2022-03-26] MEDS: sodium chloride 0.9% 1,000 ML 30 ML IV (08:02)
--- NOTE | 2022-03-26 08:35 | ANES.PREANE2 ---
Pre-Anesthetic Assessment Height/Weight: Height 1.83 m Weight 147.418 kg Temp Pulse Resp BP Pulse Ox O2 Del Method 97.6 F 51 L 18 136/81 98 03/26/22 07:54 03/26/22 07:54 03/26/22 07:54 03/26/22 07:54 03/26/22 07:54 03/26/22 07:54 Preop Diagnosis: hematochezia, gerd Operation Date: 03/26/22 09:00 Proposed Procedures p [id number], [id number](Not Applicable) - Farrukh Post MD s Colonoscopy(Not Applicable) - Farrukh Post MD Familial anesthetic complications: None Was Beta Cata taken within 24 hours: Yes Was Clonidine taken within 24 hours: N/A Last intake: Intake Last Liquid Date 03/25/22 Last Liquid Time 21:00 Last Solid Date 03/24/22 Last Solid Time 18:00 Social No alcohol and No tobacco Exam alert, oriented x 3, clear to auscultation bilaterally and regular rate & rhythm Airway Mallampati: Class IV Dentition: full Pulmonary Sleep Apnea CV/HEM Stable Angina, Coronary Artery Disease (PCI 2020) and Hypertension GI Gastroesophageal Reflux Disease Metabolic Hyperlipidemia and Morbid Obesity Anesthetic Plan ASA status: 3 Anesthesia: MAC Risk of > 500 ml blood loss (7ml/kg in children): No Medications/Allergies Home Medications Medication Instructions Recorded Confirmed Last Taken Type atorvastatin 80 mg tablet 80 mg PO DAILY 07/06/20 03/22/22 03/25/22 History cetirizine 10 mg tablet 10 mg PO DAILY 07/06/20 03/22/22 03/25/22 History cholecalciferol (vitamin D3) 25 25 mcg PO DAILY 07/06/20 03/22/22 03/25/22 History mcg (1,000 unit) capsule carvedilol 25 mg tablet 25 mg PO BID 08/10/20 03/22/22 03/26/22 05:30 History nitroglycerin 0.4 mg sublingual 0.4 mg sublingual Q5M PRN chest 12/20/20 03/22/22 03/25/22 Rx tablet pain 30 days #30 tabs aspirin 81 mg tablet,delayed 81 mg PO DAILY #90 tabs 12/30/20 03/22/22 03/25/22 Rx release (Adult Aspirin Regimen) chlorthalidone 25 mg tablet 25 mg PO DAILY #30 tabs 01/18/21 03/22/22 03/25/22 Rx lisinopril 40 mg tablet 20 mg PO DAILY 03/16/21 03/22/22 03/25/22 History pantoprazole 40 mg tablet,delayed 40 mg PO DAILY #90 tabs 04/17/21 03/22/22 03/25/22 Rx release clonazepam 1 mg tablet 1 mg PO BID PRN Anxiety 09/20/21 03/22/22 03/25/22 History dibucaine 1 % topical ointment 1 applic topical TID PRN rectal 03/21/22 03/22/22 03/25/22 Rx discomfort #30 grams fluoxetine 20 mg capsule 60 mg PO DAILY 03/21/22 03/22/22 03/25/22 History amlodipine 5 mg tablet 5 mg PO DAILY 03/22/22 03/22/22 03/25/22 History bupropion HCl 100 mg tablet 100 mg PO DAILY 03/22/22 03/22/22 03/25/22 History clopidogrel 75 mg tablet 75 mg PO DAILY 03/22/22 03/23/22 03/21/22 History hydrocortisone 2.5 % topical cream 1 applic topical BID PRN itching 03/22/22 03/23/22 03/25/22 History Allergies Allergy/AdvReac Type Severity Reaction Status Date / Time No Known Allergies Allergy Verified 03/22/22 07:20 Current Medications Generic Name Dose Route Start Last Admin Trade Name Freq PRN Reason Stop Dose Admin Sodium Chloride 1,000 mls @ 30 mls/hr 03/26/22 07:45 03/26/22 08:02 Sodium Chloride 0.9% IV 03/27/22 07:44 30 mls/hr .Q24H LUIS Administration PFSH Anesthesia Medical History Benign essential HTN Chronic low back pain History of agoraphobia History of cellulitis History of panic disorder History of posttraumatic stress disorder (PTSD) Hx of angina pectoris Hx of anxiety disorder Hx of chest pain Hx of essential hypertension Hx of gastroesophageal reflux (GERD) Hx of hiatal hernia Hx of hyperlipidemia Hx of insomnia Hx of migraine headaches Hx of obesity Hx of osteoarthritis Hx of smoking Xanthelasma Surgical History H/O total knee replacement History of PTCA Hx of CABG Hx of elbow surgery Hx of hammer toe correction Hx of inguinal hernia repair Hx of shoulder surgery Family History Sister CAD (coronary artery disease) Cancer Mother Dementia CAD (coronary artery disease) Family/Other CAD (coronary artery disease) Cancer Grandfather CAD (coronary artery disease) Grandmother CAD (coronary artery disease) Denies family history of Diabetes Clotting disorder Chronic kidney disease (CKD) Suicide Anesthesia complication Bleeding disorder Lung disease Stroke Social History Smoking and tobacco status: never smoked Alcohol intake: former Data Anesthesia Cardiac Studies: Echocardiogram Ultrasound 08/04/20 Sestamibi Stress Test (Cardiology) 08/04/20
[2022-03-26 09:40] VITALS: BP 108/63; PULSE 48; RESP 16; TEMP 36.2; O2SAT 91
[2022-03-26 09:52] VITALS: BP 119/75; PULSE 47; RESP 16; O2SAT 95
--- NOTE | 2022-03-26 13:45 | ANE.PACU2 ---
Inpatient post-anesthesia follow up: Airway intact: Yes Vital signs: Temperature 97.2 F Pulse Rate 47 Respiratory Rate 16 Blood Pressure 119/75 Pulse Oximetry 95 Oxygen Delivery Me thod Room Air Oxygen Flow Rate 3 Fraction of Inspir ed Oxygen Hydration adequate: Yes Nausea and vomiting: No Pain level: 1 Mental status: Baseline
== END 2022-03-26 10:15 | disposition home or self-care (01) ==
PROVIDERS: PCP Internal Medicine; Visit Provider Internal Medicine
PROC: 0DJ08ZZ Inspection of Upper Intestinal Tract, Via Natural or Artificial Opening Endoscopic (ICD-10-PCS; CPT 43235; principal; 2022-03-26 09:00)
PROC: 0DJD8ZZ Inspection of Lower Intestinal Tract, Via Natural or Artificial Opening Endoscopic (ICD-10-PCS; CPT 45378; 2022-03-26 09:00)
DX: K92.1 Melena (principal); K21.9 Gastro-esophageal reflux disease without esophagitis; K44.9 Diaphragmatic hernia without obstruction or gangrene; I25.110 Atherosclerotic heart disease of native coronary artery with unstable angina pectoris; I10 Essential (primary) hypertension; E78.5 Hyperlipidemia, unspecified; E66.01 Morbid (severe) obesity due to excess calories; Z68.41 Body mass index [BMI] 40.0-44.9, adult; Z95.1 Presence of aortocoronary bypass graft; Z82.49 Family history of ischemic heart disease and other diseases of the circulatory system
CPT/HCPCS: 43235; 45378; J2704; J7030

== ENCOUNTER 2022-05-29 07:52 | Outpatient (CLI) | payer OTHER, SELFPAY ==
--- NOTE | 2022-05-29 08:06 | MR_ITS ---
WS: [id number] MRI HEAD WITH CONTRAST WITH ATTENTION TO THE INTERNAL AUDITORY CANALS TECHNIQUE: Sagittal T1, T2 axial, T2 axial flair, axial susceptibility weighted imaging, axial diffus ion weighted images, and coronal T2 images were obtained. Pre and post T1 axial and post T1 coronal i mages. ADC and FSPGR images. Post gadolinium images with attention to the internal auditory canals. A xial fiesta imaging. CLINICAL INFORMATION: HEARING LOSS/TINNITUS, LEFT EAR COMPARISON: None. FINDINGS: No evidence of restricted diffusion to suggest acute ischemia. Ventricular system and basal cisterns are patent. Minimal small vessel changes. Mild parenchymal volume loss. Normal posterior fossa. Karolyn l vascular flow voids at the skull base. No extra-axial fluid collections. No evidence of mass or mas s effect. Polypoid mucosal thickening LEFT maxillary sinus. Mild mucosal thickening in the ethmoid ai r cells. Inspissated secretions within the sphenoid sinus. Normal posterior nasopharynx. Normal parap haryngeal fat. Opacification LEFT mastoid air cells. No hemosiderin on susceptibly weighted images. Proximal 7th and 8th cranial nerves are normal in appe arance. Normal trigeminal nerve root entry zones. No evidence of enhancing IAC or CP angle mass. Norm al dural venous sinuses. No abnormal intracranial enhancement. Normal optic chiasm and pituitary infu ndibulum. Normal cavernous sinuses and Meckel's cave. MR/MR iac's wo/w con* [id number] IMPRESSION: 1. No evidence of restricted diffusion to suggest acute ischemia. 2. Opacification LEFT mastoid air cells. RIGHT mastoid air cells well aerated. Normal posterior nasopharynx. 3. Polypoid mucosal thickening LEFT maxillary sinus. Inspissated secretions wi thin the sphenoid sinus. 4. No evidence of enhancing IAC or CP angle mass. 5. Normal small vessel changes with mild parenchymal volume loss. 6. No other suspicious findings.
[2022-05-29] MEDS: gadobenate dimeglumine 20 mL vial IV (08:52)
== END 2022-05-29 07:53 | disposition home or self-care (01) ==
LOC: RAD 07:57
PROVIDERS: PCP Internal Medicine; Visit Provider Otolaryngology
DX: H93.12 Tinnitus, left ear; H91.92 Unspecified hearing loss, left ear
CPT/HCPCS: 70553; A9577

== ENCOUNTER → 2022-10-04 10:54 | Outpatient (BNVA) | payer OTHER, SELFPAY | PROVIDERS: PCP Internal Medicine; Visit Provider Internal Medicine Cardiovascular Disease | DX: R07.9 Chest pain, unspecified (principal); Z98.61 Coronary angioplasty status; I44.0 Atrioventricular block, first degree; I10 Essential (primary) hypertension; E78.5 Hyperlipidemia, unspecified; Z95.1 Presence of aortocoronary bypass graft; I25.118 Atherosclerotic heart disease of native coronary artery with other forms of angina pectoris; E66.01 Morbid (severe) obesity due to excess calories | CPT/HCPCS: 93005; 99214 ==

== ENCOUNTER 2022-10-31 06:39 | Outpatient (CLI) | payer OTHER, SELFPAY ==
[2022-10-31 07:23] VITALS: BMI 42.7
--- NOTE | 2022-10-31 07:26 | NMCV_ITS ---
NM chani perf SPECT r/s* [id number] Atul Fong Age: 62 Gender: M : 1960 Exam Date: 10/31/2022 07:56 Ordering Phys: Dorian Sapp MD ([email or web address]) Technologist: DAVE Roman Exam Location: [facility] Indications: CORONARY ANGIOPLASTY STATUS STRESS TEST Please see separate stress test report in [facility] for full findings IMAGE PROTOCOL Rest/Stress 1 Lexiscan Day Radiopharmaceutical Dose (mCi) Administration Site Administered by Rest: Tc-99m 10.9 IV DAVE Lovelace Sestamibi Stress:Tc-99m 33.0 IV DAVE Lovelace Sestamibi Rest: 31-Oct-2022 60 Discovery 630 Stress: 31-Oct-2022 30 Discovery 630 0.4mg Lexiscan. Images obtained in supine and prone position. SPECT RESULTS Technical Quality: Excellent Raw Data Analysis: Normal Image Corrections: No attenuation or motion correction applied Summed Stress Score: 8 Summed Rest Score: 12 Summed Difference Score: 2 PERFUSION FINDINGS Medium sized area of fixed perfusion defect noted in inferior, inferolateral and anterolateral mcclain. This is consistent with medium sized areas of prior infarction in the RCA and left circumflex artery territories. Very minimal yehuda-infarct ischemia is seen in left circumflex artery territory. FUNCTIONAL RESULTS (calculated via Gated SPECT) Stress Image LV EF (%): 62 Stress EDV (mL):182 TID: 0.96 Stress ESV (mL):69 FUNCTIONAL FINDINGS: There is normal left ventricular systolic function. IMPRESSIONS 1. Medium sized area of infarct is seen in RCA territory. 2. Medium sized area of prior infarct is seen in left circumflex artery territory with very minimal area of yehuda-infarct ischemia. 3. LV systolic function is normal Jean-Paul Conrad MD (Electronically Signed) Final Date: 03 November 2022 09:39 S
--- NOTE | 2022-10-31 07:26 | ECG_ITS ---
[facility] Test Date: 2022-10-31 Pat Name: Atul Fong Department: Room: Gender: Male Compounding Scaler: : 1960 Requested By: Dorian Sapp Order Number: [id number] Carmelita MD: Jean-Paul Conrad M.D. Interpretive Statements NAME OF STUDY: LEXISCAN SESTAMIBI STRESS TEST INDICATION: [Chest Pain, ] Procedure: At the baseline, the blood pressure was 131/83mmHg with a heart rate of 42 bpm. The electrocardiogram showed sinus bradycardia normal axis with right bundle branch block The Lexiscan was infused over a period of 20 seconds. A total of 0.4 mg of Lexiscan was infused. The stress phase was continued for a total of 5 minutes. Heart rate was at the end of stress phase was 52 bpm and a blood pressure of 133/75mmHg. The EKG at the peak infusion revealed sinus bradycardia with no significant ST-T wave changes. Sestamibi was injected 20 seconds after the Lexiscan infusion. Blood pressure at the end of recovery phase was 137/75 mmHg with a heart rate of 49 bpm. Conclusion: 1. Normal EKG response to Lexiscan infusion 2. No Lexiscan induced chest pain or cardiac arrhythmia. 3. Normal blood pressure and heart rate response. 4. Sestamibi/sestamibi perfusion scan pending; see separate report. Electronically Signed On 11-13-2022 17:48:01 CDT by Jean-Paul Conrad M.D. [email or web address]
[2022-10-31] MEDS: regadenoson 0.4 Mg/5 ml Syringe IVP (08:32)
[2022-10-31 08:44] VITALS: BP 137/75; PULSE 53
== END 2022-10-31 06:40 | disposition home or self-care (01) ==
LOC: CDL 06:40
PROVIDERS: PCP Internal Medicine; Visit Provider Internal Medicine Cardiovascular Disease
DX: R07.9 Chest pain, unspecified (principal); I25.2 Old myocardial infarction
CPT/HCPCS: 36415; 78452; 93017; 96374; A9500; J2785

== ENCOUNTER → 2023-01-03 10:33 | Outpatient (BNVA) | payer OTHER, SELFPAY | PROVIDERS: PCP Internal Medicine; Visit Provider Nurse Practitioner Family | DX: I25.118 Atherosclerotic heart disease of native coronary artery with other forms of angina pectoris (principal); I10 Essential (primary) hypertension; Z87.891 Personal history of nicotine dependence | CPT/HCPCS: 99214 ==

== ENCOUNTER 2023-05-15 07:02 | Outpatient (CLI) | payer OTHER, SELFPAY ==
--- NOTE | 2023-05-15 07:08 | MR_ITS ---
WS: [id number] MRI LUMBAR SPINE NONCONTRAST HISTORY: LOW BACK PAIN WITH RADICULOPATHY COMPARISON: None available. TECHNIQUE: Sagittal and axial multisequence imaging is submitted. Increase in thoracic kyphosis. Normal lumbar alignment with no compression fractures or marrow edema. Mild disc space narrowing and desiccation. Conus terminates normally at L1-2 disc level. L1-L2: Very mild encroachment upon the foramen. No central high-grade stenosis. L2-L3: Mild annular disc bulging with mild ligamentum flavum and facet arthritis. Mild bilateral face t joint arthritis. Moderate bilateral foraminal stenosis with mild subarticular recess encroachment. There is encroachment upon the traversing and exiting nerve roots. L3-L4: Mild diffuse annular disc bulging with severe ligamentum flavum and facet arthritis encroachin g upon the thecal sac. Deformity of the thecal sac and the traversing nerve roots. Severe central, bi lateral subarticular recess and RIGHT foramen stenosis. Moderate LEFT foramen stenosis. L4-L5: Diffuse annular disc bulging and osteophytic ridging. Marked ligamentum flavum and facet arthr itis. Thecal sac is deformed predominant by the facet encroachment. Severe central and bilateral suba rticular recess with moderate to severe foraminal stenosis. There is significant encroachment upon th e traversing nerve roots, RIGHT greater than LEFT. L5-S1: Mild annular disc bulging with ligamentum flavum and facet arthritis. No high-grade stenosis. Paravertebral soft tissues are negative. IMPRESSION: 1. L3-4: Severe central, bilateral subarticular recess and RIGHT foramen stenosis. Moderate LEFT fora men stenosis. Multifactorial causes of stenosis with severe facet joint arthritis. 2. L4-5: Severe central, bilateral subarticular recess with moderate to severe foraminal stenosis. 3. L2-3: Moderate bilateral foraminal stenosis with mild subarticular recess encroachment.
== END 2023-05-15 07:03 | disposition home or self-care (01) ==
LOC: RAD 07:03
PROVIDERS: PCP Emergency Medicine Emergency Medical Services; Visit Provider Emergency Medicine Emergency Medical Services
DX: M54.16 Radiculopathy, lumbar region (principal); M48.061 Spinal stenosis, lumbar region without neurogenic claudication
CPT/HCPCS: 72148

== ENCOUNTER → 2023-07-16 13:52 | Outpatient (BNVA) | payer OTHER, SELFPAY | PROVIDERS: PCP Emergency Medicine Emergency Medical Services; Visit Provider Internal Medicine Cardiovascular Disease | DX: I25.10 Atherosclerotic heart disease of native coronary artery without angina pectoris (principal); I10 Essential (primary) hypertension; E78.5 Hyperlipidemia, unspecified; Z87.891 Personal history of nicotine dependence | CPT/HCPCS: 99214 ==

== ENCOUNTER → 2024-01-13 10:01 | Outpatient (BNVA) | payer OTHER, SELFPAY | PROVIDERS: PCP Emergency Medicine Emergency Medical Services; Visit Provider Internal Medicine Cardiovascular Disease | DX: I25.10 Atherosclerotic heart disease of native coronary artery without angina pectoris (principal); I10 Essential (primary) hypertension; E78.5 Hyperlipidemia, unspecified; E66.01 Morbid (severe) obesity due to excess calories; R00.1 Bradycardia, unspecified; R07.9 Chest pain, unspecified; R06.09 Other forms of dyspnea; E11.9 Type 2 diabetes mellitus without complications; G47.30 Sleep apnea, unspecified; Z87.891 Personal history of nicotine dependence | CPT/HCPCS: 99214 ==

== ENCOUNTER → 2024-04-20 11:46 | Outpatient (BNVA) | payer OTHER, SELFPAY | PROVIDERS: PCP Emergency Medicine Emergency Medical Services; Visit Provider Podiatrist Foot & Ankle Surgery | DX: M79.671 Pain in right foot (principal); M79.672 Pain in left foot; G57.61 Lesion of plantar nerve, right lower limb; G57.62 Lesion of plantar nerve, left lower limb | CPT/HCPCS: 73630; 99203 ==

== ENCOUNTER → 2024-06-22 10:37 | Outpatient (BNVA) | payer OTHER, SELFPAY | PROVIDERS: PCP Emergency Medicine Emergency Medical Services; Visit Provider Podiatrist Foot & Ankle Surgery | DX: M79.671 Pain in right foot (principal); M79.672 Pain in left foot; M77.41 Metatarsalgia, right foot; L60.0 Ingrowing nail | CPT/HCPCS: 11750; 99213 ==

== ENCOUNTER → 2024-07-24 10:51 | Outpatient (BNVA) | payer OTHER, SELFPAY | PROVIDERS: PCP Emergency Medicine Emergency Medical Services; Visit Provider Nurse Practitioner Family | DX: I10 Essential (primary) hypertension (principal); I25.10 Atherosclerotic heart disease of native coronary artery without angina pectoris | CPT/HCPCS: 93005; 99214 ==

== ENCOUNTER 2024-08-05 11:01 | Outpatient (CLI) | payer OTHER, SELFPAY ==
[2024-08-05 11:46] LABS: Basophils % 0.3 %; Eosinophils # 0.1 10^3/uL (0.0-0.8); Eosinophils % 1.5 %; Lymphocytes # 1.7 10^3/uL (0.8-4.8); Lymphocytes % 26.2 %; Mean Corpuscular HGB Conc 33.7 g/dL (30-55); Mean Corpuscular Hemoglobin 29.4 pg (27-33); Mean Corpuscular Volume 87.4 fl (82-101); Mean Platelet Volume 8.9 fL (7.4-10.4); Monocytes # 0.6 10^3/uL (0.2-0.9); Monocytes % 8.5 %; Neutrophils # 4.07 10^3/uL (1.8-7.7); Neutrophils % 62.7 %; Nucleated Red Blood Cells % 0 %; Platelet Count 218 10^3/cmm (157-399); Red Blood Count 4.69 10^6/uL (3.85-5.65); White Blood Count 6.49 10^3/uL (3.29-11.43)
[2024-08-05 12:01] LABS: INR 0.99 (0.83-1.21); Prothrombin Time (Patient) 13.8 Seconds (12.0-15.1)
[2024-08-05 12:06] LABS: Anion Gap 15.1 (5-19); Blood Urea Nitrogen 26 mg/dL (8-23); Calcium 9.7 mg/dL (8.5-10.5); Carbon Dioxide 25 mmol/L (22-29); Chloride 104 mmol/L (98-107); Glomerular Filtration Rate 75.7 mL/min (90-130); Glucose 95 mg/dL (65-115); Osmolality Calculated 295 mOsm/kg (285-295); Potassium 4.1 mmol/L (3.5-5.1); Sodium 140 mmol/L (136-145)
== END 2024-08-05 11:02 | disposition home or self-care (01) ==
LOC: LAB 11:01
PROVIDERS: PCP Family Medicine; Visit Provider Nurse Practitioner Family
DX: I25.118 Atherosclerotic heart disease of native coronary artery with other forms of angina pectoris (principal); Z72.0 Tobacco use; E78.5 Hyperlipidemia, unspecified; I10 Essential (primary) hypertension; R07.9 Chest pain, unspecified
CPT/HCPCS: 36415; 80048; 85025; 85610; 86850; 86900

== ENCOUNTER 2024-08-11 05:49 | Outpatient (CLI) | payer OTHER, SELFPAY ==
[2024-08-11] VITALS (51 sets, daily range): BP systolic 110–166; BP diastolic 65–88; PULSE 46–53; RESP 12–25; TEMP 37.1; O2SAT 93–99; BMI 45.0
--- NOTE | 2024-08-11 06:00 | XACV_ITS ---
Exam Room: 2 Ht: 183 cm Wt: 151 kg BSA: 2.84 m2 Gender: Male : 1960 Any Known Allergies: No known allergies Exam Priority: Routine Procedure(s): Procedure Description: Diagnostic procedure Procedure Description: Left Heart Catheterization Procedure Description: Left ventriculography Procedure Description: Coronary Angiography Procedure Description: Pressure Wire Sekou DERAS; Diagnostic Cath Status: Elective Diagnostic Findings * The left main is a medium caliber vessel with no significant stenotic lesions. * The left hand descending artery is a medium caliber vessel which appears to wraparound the LV apex minimally. The mid LAD has a long stented segment which I was found to be widely patent with no significant in-stent stenosis. Proximal to the stented area, there was around 50% narrowing. Just distal to the stent also there was found to have a 40 to 50% gnosis. The distal LAD was found to have minimal intimal irregularities. * The circumflex artery is a medium caliber vessel which gives of a high obtuse marginal branch. This obtuse marginal artery was found to have around 40% tubular narrowing in the midsegment. No other significant lesions are noted. Minimal intimal irregularities are noted on the rest of the vessels. * The right coronary artery is a dominant vessel which was found to have mild diffuse intimal irregularities with no significant stenotic lesions. Interventional Findings * Procedure detail: After diagnostic images were obtained, we decided to perform IFR of LAD. Left main artery was engaged with XB 3.5 guide catheter. Heparin was administered for anticoagulation. iFR wire was advanced into the distal LAD. iFR value of 0.93 was obtained that was non-ischemic. iFR wire and guide catheter were removed. Patient left the laboratory technologist in a stable condition. . Conclusions 1. 64-year-old white male with a previous history for atherosclerotic heart diseas and PCI's, presenting with increasing episodes of chest pains. He had a Myocardial perfusion imaging in 2022 which revealed subtle areas of ischemia . Because of the patient's ongoing increasing episodes of chest symptoms, in order to further evaluate the coronary status, a repeat cardiac catheterization was recommended. Patient underwent left heart catheterization with left and right coronary angiogram and LV angiogram today. The findings are as follows. 2. No significant left main disease. Patent stented segment of the mid LAD. Moderate stenosis in the LAD, proximal and distal to the stented segment. Mild diffuse disease in the other vessels.. LVEDP of 10 mmHg. LV ejection fraction of 55%. 3. Based on the above findings, it was thought to be appropriate to consider an IFR to better evaluate the functional significance. This was discussed with Dr. Conrad who concurred with the plan. Dr. Conrad took over further management of this patient at this point. The IFR was found to be 0.93. 4. Moderate LAD disease with iFR value of 0.93. Aggressive medical therapy. Recommendations * Aggressive medical therapy for coronary artery disease. * Outpatient cardiology follow up in 4 weeks. Interventional RX Recommendation: medical therapy and/or counseling Diagnostic RX Recommendation: other cardiac therapy w/o CABG/PCI Anticoagulation: Heparin Ventriculography Ejection Fraction: 55.0 % LV EDP: 10 mmHg Left Ventriculography Findings: * The LV gram was performed in the HERNANDEZ position. LV cavity appears to be normal size. LV ejection fraction was found to be around 55%. No significant wall motion abnormalities were noted. No significant mitral regurgitation. Pressures Phase:Rest AO : 131 / 79 ( 96 ) @ 8:30:00 AM 104 / 53 ( 74 ) @ 8:33:00 AM 110 / 49 ( 75 ) @ 8:45:00 AM 113 / 53 ( 76 ) @ 8:45:00 AM LV : 116 / -12 / 10 @ 8:43:00 AM 121 / -17 / 6 @ 8:44:00 AM 122 / -13 / 10 @ 8:45:00 AM Valves Phase:DefaultPhase AV : 16.0 @ 8:17:21 AM AV Mean Gradient: 44.0 @ 8:17:21 AM Clinical Evaluation EBL: 5mL-10mL Procedural Details Procedure Consent Obtained. Admit Source: Out Patient. Pre-Procedure Time Out. Identified patient by full name and date of as verbalized by the patient/guarantor. Does the consent match the physician's order: Yes. Accurate & Complete Informed Consent: Yes. Inpatient/Outpatient History & Physical on Chart: Yes. If H&P is completed, is and addenduem needed: N/A Emergent; If yes, is the addendum complete: N/A. Visualize and Verify Site with Patient/Guarantor: N/A. Relevant Radiology Images available: No. The risks, benefits, and alternatives of sedation and/or procedure were discussed by physician. The patient agrees to continue. Procedure started. [facility] Clinical Fraility Score: 3: Managing Well. Facilities Specialist Indications: Worsening Angina, Abnormal stress test. Chest Pain Symptom Assessment: Typical Angina Symptoms. Correct patient, site and procedure confirmed by cath team. Current diagnosis: Chest Pain. PERRLA. Strong, equal hand retort pre cooker bilaterally. Lungs clear x 5 lobes. IV Site on Arrival: 20 gauge in the right hand. IV Fluids: 0.9% NaCl at KVO. 0 mL infused prior to laboratory technologist. Pre Procedural Pulses: bilateral dorsalis pedis was 3+. Pre Procedural Pulses: bilateral radial was 3+. Pre Procedural Pulses: bilateral posterior tibial was 3+. Oxygen started at 2liters/min via nasal canula. bilateral groins was prepped with chloroprep then draped in the usual sterile fashion. Physician notified. Physician arrived. Baseline sample Acquired. HR: 49 BPM. Physician scrubbed in. Immediate Pre-Procedure Time Out. Correct Patient: Yes; Correct Procedure: Yes; Correct Site: Yes; Correct Patient Position: Yes; Correct Supplies: Yes; Dried Flammable Prep: Yes; Blood Products Available: No;. Lidocaine 1% infiltrated to the right groin. Arterial access obtained with micropuncture set. A 5 nauruan JL4 catheter in over wire. Multiple views taken of left coronary artery. Catheter removed over the standard wire. A 5 nauruan JR4 catheter in over wire. Multiple views taken of right coronary artery. Catheter removed over the standard wire. A 5 nauruan Angled Pig catheter in over wire. EDP Sample taken: LV 116/-13,10; HR: 50 BPM; SpO2: 95%. LV gram performed in HERNANDEZ @ 10 mL/second for a total of 30 mL. EDP Sample taken: LV 121/-18,6; HR: 50 BPM; SpO2: 96%. Pullback taken: LV 122/-14,10; AO 110/49(75); Mean: 44mmHg, Peak to Peak: 16mmHg, SEP: 16sec/min; HR: 50 BPM; SpO2: 96%. Catheter removed over the standard wire. Dr. Conrad scrubbed in to perform intervention. 6 nauruan XB 3.5 guide catheter was inserted over the wire. iFR guidewire in through guide catheter to lesion in the proximal LAD. Guidewire out to reshape. iFR guidewire in through guide catheter to lesion in the proximal LAD. Guidewire advanced across lesion. IFR proximal LAD 0.93mmHg. Angiography performed. Wire out. Guide catheter out. A Right femoral angiogram was performed to determine safe placement of closure device. Lidocaine to right groin pre Angioseal. A Angio-Seal VIP (St[place] Jimbo) was successful obtaining hemostatsis at the Right Femoral artery insertion site. EXP 02-06-2025 LOT # [id number]. Post Procedure: Pulses reassessed and unchanged. PERRLA. Strong, equal hand retort pre cooker bilaterally. No VTE prophylaxis required. Medication's Wasted: Heparin = 3500 units. Medication's Wasted: Other = Versed 1 mg. Total IV fluids: 50 mL. Post-op diagnosis: Non-obstructive CAD, patent prior stent. Complications: None. Estimated blood loss: 5mL-10mL. Responsiveness - Normal response to verbal stimuli; alert and oriented, PERRLA. Airway - Unaffected, no intervention required; spontaneous ventilation. Circulation: W/N/L, pulses unchanged. Nausea/Vomiting: No. Procedure completed. Patient transferred by bed to ICU. Vital chart was stopped. Access Site Site: Right Femoral artery Sheath Size: 6 Fr Hemostasis Method: Angio-Seal VIP (St. Jimbo) Hemostasis Success: Successful Procedure Medications Start: 7:16 AM Stop: 7:16 AM Medication: Versed Amount: 1 mg Route: I.V. Start: 7:17 AM Stop: 7:17 AM Medication: Fentanyl Amount: 50 mcg Route: I.V. Start: 7:21 AM Stop: 7:21 AM Medication: Versed Amount: 1 mg Route: I.V. Start: 7:24 AM Stop: 7:24 AM Medication: Fentanyl Amount: 25 mcg Route: I.V. Start: 7:29 AM Stop: 7:29 AM Medication: Heparin Amount: 1500 units Route: I.V. Start: 7:30 AM Stop: 7:30 AM Medication: Versed Amount: 1 mg Route: I.V. Start: 7:37 AM Stop: 7:37 AM Medication: Versed Amount: 1 mg Route: I.V. Start: 7:51 AM Stop: 7:51 AM Medication: Versed Amount: 1 mg Route: I.V. Start: 7:51 AM Stop: 7:51 AM Medication: Fentanyl Amount: 25 mcg Route: I.V. Start: 8:01 AM Stop: 8:01 AM Medication: Heparin Amount: 31903 units Route: I.V. I, the attending physician, have reviewed and verified all procedure medications. Yes, all medications given per verbal order History/Risk Factors Hypertension: Yes Dyslipidemia: Yes Peripheral Arterial Disease (PAD): No Myocardial Infarction (UT): No Obesity: Yes Renal Disease: No Tobacco Use: Never Prior Interventions PCI: Yes CABG: No Valve Surgery: No Date of PCI: 12/23/2020 Report Signatures Interventional Workflow Finalized by Jean-Paul Conrad MD on 08/17/2024 11:22 AM Diagnostic Workflow Finalized by Dr Dorian Sapp MD [facility] on 08/11/2024 10:00 AM
[2024-08-11] MEDS: diphenhydrAMINE 50 mg Capsule PO (06:32)
--- NOTE | 2024-08-11 07:15 | W.PM.OPSUD ---
Surgery/Procedure H&P Update DATE OF PROCEDURE: August 11, 2024 DATE H&P PERFORMED: 07/24/24 H&P UPDATE INFORMATION: I have reviewed H&P completed within last 30 days, I have examined patient prior to procedure and No changes to prior documentation PREOP DIAGNOSIS: ASHD PRIMARY INDICATION FOR PROCEDURE: History of ASHD, status post PCI, presenting with increasing episodes of chest pains. Abnormal myocardial perfusion imaging in 2022 PLANNED PROCEDURE: Operation Date: 08/11/24 07:00 Proposed Procedures p Cardiac Catheterization(Left) - Dorian Sapp MD PATIENT REASSESSED PRIOR TO SEDATION, WITH NO CHANGE NOTED: Yes PHYSICAL EXAM: alert, oriented x 3, clear to auscultation bilaterally and regular rate & rhythm AIRWAY EVAL/ANESTHESIA PLAN: normal airway, see other exam findings, ASA III, Monitored Anesthesia, Local Anesthesia, Risks, benefits & alternatives of sedation and/or procedure discussed and Patient agrees to continue as planned
--- NOTE | 2024-08-11 09:26 | PM.OP ---
Operative Report Date of procedure: August 11, 2024 Surgeon: Dorian Sapp MD Procedure: This patient underwent left heart catheterization with left and right coronary angiogram and LV angiogram today. He was found to have patent stented segment in the LAD with moderate SHANA stent stenosis. Mild disease in the other vessels. LV ejection fraction was within normal limits. LVEDP of 10 mmHg. Based on the angiogram findings and also in view of the patient's ongoing symptoms, it was thought to be appropriate to do an FFR of the peristernal lesions. This was discussed with Dr. Conrad. concurred with the plan and took over further management.
--- NOTE | 2024-08-11 09:35 | PC.NURSE ---
Patient refused medications. He said he was told he could take them all before his procedure so he took them at home.
--- NOTE | 2024-08-11 16:14 | PC.NURSE ---
Discharge instructions printed and reviewed with patient and , both verbalized understanding. IV removed and catheter intact. Patient tolerated well. Groin site observed. Dressing dry and intact. All belongings sent with patient. Patient left via personal vehicle with at 1615
== END 2024-08-11 16:15 | disposition home or self-care (01) ==
LOC: CCL 05:52 → ICU 08:33
PROVIDERS: Internal Medicine; PCP Family Medicine; Visit Provider Internal Medicine Cardiovascular Disease
DX: I25.118 Atherosclerotic heart disease of native coronary artery with other forms of angina pectoris (principal); I10 Essential (primary) hypertension; E78.5 Hyperlipidemia, unspecified; Z95.5 Presence of coronary angioplasty implant and graft; T82.855A Stenosis of coronary artery stent, initial encounter; Z79.82 Long term (current) use of aspirin; Z82.49 Family history of ischemic heart disease and other diseases of the circulatory system; F17.220 Nicotine dependence, chewing tobacco, uncomplicated
CPT/HCPCS: 36415; 93458; 93571; 96374; 99152; 99153; C1760; C1769; C1887; C1894; G0269; J1644; J2250; J3010; J7030; J9999; Q0163; Q9967

== ENCOUNTER → 2024-08-17 10:32 | Outpatient (BNVA) | payer OTHER, SELFPAY | PROVIDERS: PCP Family Medicine; Visit Provider Podiatrist Foot & Ankle Surgery | DX: M79.671 Pain in right foot (principal); M77.41 Metatarsalgia, right foot; M77.42 Metatarsalgia, left foot; L60.0 Ingrowing nail | CPT/HCPCS: 99213 ==

== ENCOUNTER → 2024-09-02 12:43 | Outpatient (BNVA) | payer OTHER, SELFPAY | PROVIDERS: PCP Family Medicine; Visit Provider Nurse Practitioner Family | DX: Z09 Encounter for follow-up examination after completed treatment for conditions other than malignant neoplasm (principal); I25.10 Atherosclerotic heart disease of native coronary artery without angina pectoris; E78.5 Hyperlipidemia, unspecified; I10 Essential (primary) hypertension; R60.9 Edema, unspecified; Z79.82 Long term (current) use of aspirin; Z95.5 Presence of coronary angioplasty implant and graft | CPT/HCPCS: 99214 ==

== ENCOUNTER 2024-09-09 09:16 | Outpatient (CLI) | payer OTHER, SELFPAY ==
[2024-09-09 09:53] LABS: Chol HDL Ratio 4.29 mg/dL (1.0-5.00); Cholesterol 210 mg/dL (0-200); HDL Cholesterol 49 mg/dL (60-100); LDL Cholesterol Calculated 111 mg/dL (50-129); LDL HDL Ratio 2.27 RATIO (0.00-3.22); Triglycerides 252 mg/dL (0-150)
== END 2024-09-09 09:17 | disposition home or self-care (01) ==
LOC: LAB 09:17
PROVIDERS: PCP Family Medicine; Visit Provider Nurse Practitioner Family
DX: I25.10 Atherosclerotic heart disease of native coronary artery without angina pectoris (principal)
CPT/HCPCS: 36415; 80061

== ENCOUNTER 2025-02-09 12:20 | Emergency (ER) | payer OTHER, SELFPAY ==
[2025-02-09] VITALS (10 sets, daily range): BP systolic 94–132; BP diastolic 60–85; PULSE 52–67; RESP 16–18; TEMP 36.7; O2SAT 94–98; BMI 40.9
--- OUTSIDE RECORDS SUMMARY | 2025-02-09 13:08 | XMS_ITS | Encounter Summary ---
Author Organization [facility] Address [address] [place] [address] Care Team Providers Care Cement Loader Name Role Phone Johnson Jean MD Primary Care Provider Encounter Details Date Type Department Care Team (Latest Contact Info) Description 05/31/2009 Outpatient Historical [facility] [address] 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
--- OUTSIDE RECORDS SUMMARY | 2025-02-09 13:08 | XMS_ITS | Encounter Summary ---
Author Organization [facility] Address [address] [place] [address] Care Team Providers Care Price Lister Name Role Phone Johnson Jean MD Primary Care Provider Encounter Details Date Type Department Care Team (Latest Contact Info) Description 08/24/2002 Outpatient Historical [facility] Medicine[address] [phone] Servando Gonzalez MD [address] [place] [phone] ESOPHAGEAL REFLUX (Primary Dx); CARPAL TUNNEL SYNDROME; OBESITY NOS; PANIC DISORDER Social History Tobacco Use Types Packs/Day Years Used Date Smoking Tobacco: Never Assessed Sex and Gender Information Value Date Recorded Sex Assigned at Not on file 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
--- OUTSIDE RECORDS SUMMARY | 2025-02-09 13:08 | XMS_ITS | Clinical Summary ---
Author Organization [facility] Address [address] [place] [address] Care Team Providers Care Potato Peeler Name Role Phone Unavailable Primary Care Provider Unavailabl e Allergies No known active allergies Medications clonazePAM (KLONOPIN) 1 MG tablet Take 1 mg by mouth 2 (two) times a day as needed for seizures. Active escitalopram (LEXAPRO) 20 MG tablet Take 20 mg by mouth daily. Active carvedilol (COREG) 25 MG tablet Take 25 mg by mouth 2 (two) times a day. Active lisinopril-hydr ochlorothiazide (PRINZIDE,ZESTO RETIC) 20-12.5 mg per tablet Take 1 tablet by mouth daily. Active atorvastatin (LIPITOR) 80 MG tablet Take 80 mg by mouth daily. Active pantoprazole (PROTONIX) 20 MG EC tablet Take 20 mg by mouth every morning before breakfast. Active aspirin 325 MG tablet Take 325 mg by mouth daily with breakfast. Active Active Problems Problem Noted Date Diagnosed Date Right inguinal hernia 10/31/2020 Assessment & Plan (11/17/2020 1:52 PM CDT): Slowly resume normal activities over the next 4 weeks. Follow-up as needed. Assessment & Plan (10/31/2020 1:26 PM CDT): Schedule Laparoscopic Right Inguinal Hernia Repair The indications, alternatives, risks and potential complications, including, but not limited to: bleeding, infection, re-occurrence, mesh reaction, damage to the sphincter chord, testicular swelling or atrophy, nerve injury or entrapment, and the risks of anesthesia, were discussed with the patient and they understand and wish to proceed. Coronary artery disease 11/12/2016 Hypertension 11/12/2016 Hyperlipidemia 11/12/2016 History of coronary artery stent placement 11/12 Family History Medical History Relation Name Comments Cancer Sister Relation Name Status Comments Sister Social History Tobacco Use Types Packs/Day Years Used Date Smoking Tobacco: Never Smokeless Tobacco: Current Alcohol Use Standard Drinks/Week Comments Yes 0 (1 standard drink = 0.6 oz pur e alcohol) Sex and Gender Information Value Date Recorded Sex Assigned at Not on file Legal Sex Male 3:06 PM CDT Gender Identity Not on file Sexual Orientation Not on file Last Filed Vital Signs Vital Sign Reading Time Taken Comments Blood Pressure 130/84 11/17/2020 8:35 AM CDT Pulse 70 11/17/2020 8:35 AM CDT Temperature - - Respiratory Rate 16 11/17/2020 8:35 AM CDT Oxygen Saturation - - Inhaled Oxygen Concentration - - Weight 129 kg (284 lb 9.6 oz) 12/14/2016 12:14 P M CDT Height 182.9 cm (6') 12/14/2016 12:14 PM CDT Body Mass Index 38.6 12/14/2016 12:14 PM CDT Plan of Treatment Health Maintenance Due Date Last Done Comments Annual Wellness 1960 Colonoscopy 2007 Pneumococcal Vaccine: 50+ Years (1 of 1 - PCV) 2012 Shingrix (ZOSTER RECOMBINANT) (1 of 2) 2012 Td, Tdap Vaccines Adult 02/16/2013 02/16/2003 Influenza Vaccination (#1) 12/25/202405/01, 03/26/2016, 03/30/2015, Additional history exists RSV 60+ (1 - 1-dose 75+ series) 2037 HIB Vaccines Aged Out No longer eligi ble based on patient's age to complete this topic HPV Vaccines Aged Out No longer eligi ble based on patient's age to complete this topic Hepatitis A Vaccines Aged Out No long er eligible based on patient's age to complete this topic Hepatitis B Vaccines Aged Out No long er eligible based on patient's age to complete this topic IPV Vaccines Aged Out No longer eligi ble based on patient's age to complete this topic Meningococcal Vaccines Aged Out No lo nger eligible based on patient's age to complete this topic RSV Mab Nirsevimab (Beyfortus) <20 months Aged Out No longer eligibl e based on patient's age to complete this topic Rotavirus Vaccines Aged Out No longer eligible based on patient's age to complete this topic Insurance [facility]
--- OUTSIDE RECORDS SUMMARY | 2025-02-09 13:08 | XMS_ITS | Encounter Summary ---
Author Organization [facility] Address [address] [place] [address] Care Team Providers Care Music Theory Professor Name Role Phone Johnson Jean MD Primary Care Provider Encounter Details Date Type Department Care Team (Latest Contact Info) Description 07/27/2002 Outpatient Historical [address] [phone] Servando Gonzalez MD [address] [place] [phone] Pure hypercholesterolem (Primary Dx); ESOPHAGEAL REFLUX; PANIC DISORDER Social History Tobacco Use Types Packs/Day Years Used Date Smoking Tobacco: Never Assessed Sex and Gender Information Value Date Recorded Sex Assigned at Not on file Legal Sex Male 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
--- OUTSIDE RECORDS SUMMARY | 2025-02-09 13:08 | XMS_ITS | Encounter Summary ---
Author Organization [facility] Address [address] [place] [address] Care Team Providers Care Overhead Door Technician Name Role Phone Johnson Jean MD Primary Care Provider Encounter Details Date Type Department Care Team (Latest Contact Info) Description 02/17/2003 Outpatient Historical [facility] Medicine[address] [phone] Servando Gonzalez MD [address] [place] [address] OPEN WOUND KNEE/LEG/ANKLE (Primary Dx); LOCAL SKIN INFECTION NOS; Pure hypercholesterolem Social History Tobacco Use Types Packs/Day Years Used Date Smoking Tobacco: Never Assessed Sex and Gender Information Value Date Recorded Sex Assigned at Not on file 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 Sex Male 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 Gender Identity Not on file Sexual Orientation Not on file documented as of this encounter Plan of Treatment Not on file documented as of this encounter Visit Diagnoses Diagnosis Open wound of knee, leg (except thigh), and ankle, without mention of complication- Primary Unspecified local infection of skin and subcutaneous tissue Pure hypercholesterolem Pure hypercholesterolemia documented in this encounter Care Teams Overhead Door Technician Relationship Specialty Start Date End Date Johnson Jean MD [address] [place] [address] PCP - General Internal Medicine 02/20/12 documented as of this encounter
--- OUTSIDE RECORDS SUMMARY | 2025-02-09 13:08 | XMS_ITS | Encounter Summary ---
Author Organization [facility] Address [address] [place] [address] Care Team Providers Care Food Preparation Worker Name Role Phone Johnson Jean MD Primary Care Provider Encounter Details Date Type Department Care Team (Latest Contact Info) Description 09/08/2002 Outpatient Historical [facility] Medicine[address] [phone] Andrew Hernandez MD [address] [phone] Pure hypercholesterolem (Primary Dx); Dietary surveil/herb counselor Social History Tobacco Use Types Packs/Day Years Used Date Smoking Tobacco: Never Assessed Sex and Gender Information Value Date Recorded Sex Assigned at Not on file 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
--- OUTSIDE RECORDS SUMMARY | 2025-02-09 13:08 | XMS_ITS | Encounter Summary ---
Author Organization [facility] Address [address] [place] [address] Care Team Providers Care Customer Quality Engineer Name Role Phone Johnson Jean MD Primary Care Provider Reason for Referral * Outpatient Services (Routine) - Closed Specialty Diagnoses / Procedures Referred By Contac t Referred To Contact Diagnoses Chest pain Procedures ECHO PRE TEST Bc Nunez MD [address] [place] [phone] Phone: tel: fax: Referral ID Status Reason Start Date Expiration Date Visits Re quested Visits Authorized [id number] Closed 03/05/2012 03/05/2013 1 1 Encounter Details Date Type Department Care Team (Late st Contact Info) Description 03/05/2012 Ancillary Orders [facility] Cardiology- [place] [address] [place] [address] Bc Nunez MD [address] [place] [phone] Chest pain Social History Tobacco Use Types Packs/Day Years Used Date Smoking Tobacco: Never Smokeless Tobacco: Current Alcohol Use Standard Drinks/Week Comments Yes 3.3 (1 standard drink = 0.6 oz p ure alcohol) Sex and Gender Information Value Date Recorded Sex Assigned at Not on file Legal Sex Male 6:27 AM CARD SERVICES SPECIALIST Gender Identity Not on file Sexual Orientation Not on file documented as of this encounter Plan of Treatment Not on file documented as of this encounter Results * ECHO PRE TEST (03/05/2012 11:40 AM CDT) Narrative [facility] - 08/16/2017 12:31 PM CDT FINAL - See Provider Note Procedure Note 07/06/2015 FINAL - See Provider Note us Bc Nunez MD US ORDERABLES Final Resu lt [facility] documented in this encounter Visit Diagnoses Diagnosis Chest pain Chest pain, unspecified documented in this encounter Care Teams Customer Quality Engineer Relationship Specialty Start Date End Date Johnson Jean MD [address] [place] [phone] PCP - General Internal Medicine 02/20/12 documented as of this encounter
--- OUTSIDE RECORDS SUMMARY | 2025-02-09 13:08 | XMS_ITS | Clinical Summary ---
Author Organization [facility] Address [address] Attn: [place] [address] Care Team Providers Care Tube Fitter Name Role Phone Johnson Jean MD Primary Care Provider Allergies No known active allergies Medications cholecalciferol , Vitamin D3, (VITAMIN D3) 25 mcg (1,000 unit) Capsule Take by mouth daily. 12/04/19 18 Active amLODIPine (NORVASC) 5 mg tablet Take 5 mg by mouth daily. Active cetirizine (ZyrTEC) 10 mg tablet Take 10 mg by mouth daily. Active chlorthalidone (HYGROTON) 25 mg tablet Take 25 mg by mouth daily. Active lisinopriL (PRINIVIL) 20 mg tablet Take 20 mg by mouth daily. Active atorvastatin (LIPITOR) 80 mg tablet Take 80 mg by mouth daily. Active FLUoxetine (PROzac) 20 mg capsule Take by mouth daily. Active aspirin (ECOTRIN EC) 81 mg Tablet, Delayed Release (E.C.) Take 81 mg by mouth daily. Active pantoprazole (PROTONIX) 40 mg Tablet, Delayed Release (E.C.) Take 40 mg by mouth daily. Active isosorbide mononitrate (IMDUR) 30 mg Extended Release 24 hour tablet Take 30 mg by mouth daily in the morning. Active gabapentin (NEURONTIN) 300 mg capsule Take 300 mg by mouth 3 times daily. Active methocarbamoL (ROBAXIN) 750 mg tablet TAKE 1 TABLET BY MOUTH THREE TIMES A DAY NEEDED 04/05/20 21 Active lisinopril-hydr oCHLOROthiazide (ZESTORETIC) 20-12.5 mg tablet Take 1 Tablet by mouth daily. Active lisinopril-hydr oCHLOROthiazide (ZESTORETIC) 20-12.5 mg tablet Take 1 Tablet by mouth daily strickler attendant. 08/17/19 18 Active aspirin buffered (BUFFERIN) 325 mg tablet Take 1 Tablet by mouth 2 times daily. 08/17/19 18 Active atorvastatin (LIPITOR) 80 mg tablet Take 80 mg by mouth late in the day. 07/09/19 18 Active omeprazole (PriLOSEC) 20 mg Capsule, Delayed Release(E.C.) Take 20 mg by mouth. 10/06/19 21 Active clonazePAM (KlonoPIN) 1 mg tablet 11/08/19 22 Active cefdinir (OMNICEF) 300 mg capsule Take 300 mg by mouth 2 times daily. 08/25/19 22 Active acyclovir (ZOVIRAX) 400 mg tablet Take 400 mg by mouth see administration instructions. QID Active tobramycin-dexA METHasone (TOBRADEX) 0.3-0.1 % ointment 0.25 Inches 4 times daily. Active celecoxib (CeleBREX) 200 mg capsule Take 1 Capsule (200 mg) by mouth daily. 30 Capsule 1 03/17/20 24 Active CPAP / BIPAP supplies Resmed CPAP [id number] of need: 99 months Mask Type: per patient comfort with headgear every 6 months, mask only every 3 months,as needed cushions per month. Tubing: heated 1 every 3 months, water chamber 1 every 6 months, chin strap 1 every 6 months, filters disposable 2 per month, filters reusable 1 per 6 months.Efficacy data download and mask fitting. Please link efficiency data download to Dr. Morton account. Diagnosis: G47.33 1 Each 04/13/20 24 Active cycloSPORINE (Restasis) 0.05 % emulsion Administer 1 Drop in both eyes 2 times daily. 60 Each 2 01/14/20 25 Active carboxymethylce llulose sodium (REFRESH) 0.5 % solution Administer 1 Drop in both eyes 2 times daily. 01/14/20 25 Active loteprednol (LOTEMAX) 0.5 % suspension Administer 1 Drop in both eyes 2 times daily. 10 mL 1 01/14/20 25 Active cycloSPORINE (Restasis) 0.05 % emulsion Administer 1 Drop in both eyes 2 times daily. 60 Each 2 12/17/19 24 025 Discontin ued(Reord er) loteprednol (LOTEMAX) 0.5 % suspension Administer 1 Drop in both eyes daily. 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 09/18/2017 Preoperative general physical examination 2017 Major depression 08/16/2017 Chewing tobacco use 08/16/2017 Severe obesity (BMI 35.0-39.9) with comorbidity 08/16/2017 Anemia 08/16/2017 Left inguinal hernia 07/31/2017 CAD (coronary artery disease) 02/20/2012 GERD (gastroesophageal reflux disease) Hyperlipidemia Essential hypertension Resolved Problems Problem Noted Date Diagnosed Date Resolved Date Primary osteoarthritis of left knee 07/09/2017 09/18/2017 Encounters Date Type Department Care Team Description 01/13/2025 9:50 AM CDT Office Visit [facility] [place] [address] [address] Caio Barrios MD 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); Superior limbic keratoconjunctivitis of both eyes 12/30/2024 External Device Data STL ABSTRACTION Provider, Abstract 12/29/2024 External Device Data STL ABSTRACTION Provider, Abstract 12/15/2024 External Device Data STL ABSTRACTION Provider, Abstract 11/11/2024 External Device Data STL ABSTRACTION Provider, Abstract 11/10/2024 External Device Data STL ABSTRACTION Provider, Abstract from Last 3 Months Immunizations Immunization Administration Dates Next Due (TDVAX)(7 YRS UP) TETANUS AN D DIPHTHERIA TOXOIDS, ADSORBED (2 LF OF TETANUS TOXOID AND 2 LF OF DIPHTHERIA TOXOID), 0.5ML (PF), IM 02/16/2003 Influenza Seasonal Unspecifi ed Formulation IM 03/18/2003 Influenza Vaccine Nasal 02/26/2014 Influenza Vaccine Tri Split 4+ Pf Im 10/2016,03/26/2016,03/30/2015,2013 Family History Medical History Relation Name Comments Hypertension Brother Unknown Father Hypertension Mother Cancer Sister Healthy Son Relation Name Status Comments Brother Alive Father Mother Alive Sister Alive Son Alive Social History Tobacco Use Types Packs/Day Years Used Date Smoking Tobacco: Never Smokeless Tobacco: Current Tobacco Cessation:Ready to Q uit: Not Asked; Counseling Given: Not Answered Alcohol Use Standard Drinks/Week Comments Yes 0 (1 standard drink = 0.6 oz pur e alcohol) Sex and Gender Information Value Date Recorded Sex Assigned at Not on file Legal Sex Male 3:24 AM U.S. SENATOR Gender Identity Not on file Sexual Orientation Not on file Last Filed Vital Signs Vital Sign Reading Time Taken Comments Blood Pressure 140/80 05/01/2024 12:36 PM U.S. SENATOR Pulse 54 11/22/2021 9:57 AM CDT Temperature 36.7 C (98.1 F) 10/05/2021 9:46 AM CDT Respiratory Rate 16 10/05/2021 10:2 5 AM CDT Oxygen Saturation 95% 11/22/2021 9:57 AM CDT Inhaled Oxygen Concentration - - Weight 152.6 kg (336 lb 6.4 oz) 024 11:37 AM U.S. SENATOR Height 182.9 cm (6') 05/01/2024 11:37 AM U.S. SENATOR Body Mass Index 45.62 05/01/2024 11:37 AM U.S. SENATOR Plan of Treatment Upcoming Encounters Date Type Department Care Team (Late st Contact Info) Description 04/16/2025 10:10 AM U.S. SENATOR Office Visit [facility] [place] [address] [place] [phone] Caio Barrios MD [address] [facility] [place] [address] Health Maintenance Due Date Last Done Comments Pre-Diabetes and Diabetes Screening 1962 DTAP/TDAP/TD VACCINES (1 - Tdap) 02/17/2003 02/17/20 03 COLORECTAL SCREENING 2007 Colorectal Cancer Screening 2007 FIT-DNA Q 3 years 2007 FIT/FOBT Q 1 year 2007 Flex Sig/CT Colonography Q 5 years 2007 ZOSTER VACCINE (1 of 2) 2012 RSV VACCINE (60+ or ) (1 - Risk 60-74 years 1-dose series) 2022 INFLUENZA VACCINE (#1) 2024 7, 03/26/2016, 03/30/2015, Additional history exists COVID-19 Vaccine Completed 03/23/2024, 12/2022, 02/22/2022, Additional history exists Medical Devices Implanted Type Area Head Turbine Operator Device Identifier Shelf Expiration Date Model / Serial / Lot Cement Simplex Hvisc 6194-1-010 - [id number] Implanted:Qty : 1 on 09/02/2017 by Omar Mccarty MD Cement Left: Knee SELENA- [employer] 01/24/2019 6194-1-010 / / [id number] Cement Simplex Hvisc 6194-1-010 - [id number] Implanted:Qty : 1 on 09/02/2017 by Omar Mccarty MD Cement Left: Knee SELENA- [employer] 01/24/2019 6194-1-010 / / [id number] Comp Fem Gnsii Oxnm Cr Sz6 8179-8039 - [id number] Implanted:Qty : 1 on 09/02/2017 by Omar Mccarty MD Knee Left: Knee WEI NEPHEW ORTHO 02/09/2027 [id number] / / [id number] Comp Tib Gnsii Email Specialist Sz6 Lt 6990-1146 - [id number] Implanted:Qty : 1 on 09/02/2017 by Omar Mccarty MD Knee Left: Knee WEI NEPHEW ORTHO 07/16/2027 [id number] / / [id number] Ins Lgn Xlpe Dshd Sz5-6 [id number] - [id number] Implanted:Qty : 1 on 09/02/2017 by Omar Mccarty MD Knee Left: Knee WEI NEPHEW ORTHO 12/16/2026 [id number] / / [id number] Patella Gnsii Resurf 35mm [id number] - [id number] Implanted:Qty : 1 on 09/02/2017 by Omar Mccarty MD Knee Left: Knee WEI NEPHEW ORTHO 04/03/2027 [id number] / / [id number] Mesh Bard [id number] - [id number] Implanted:Qty : 1 on 07/31/2017 by Thee Cuenca MD Mesh Left: Groin CR BARD- [employer] 03/23/2022 [id number] / / [id number] Procedures Procedure Name Priority Date/Time Associated Diagnosis Comments EYE DROPS Routine 01/13/2025 10:27 AM CDT 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 [place] [address] from Last 3 Months Insurance [facility] * Guarantor: CARA CORTEZ Account Type Relation to Patient Date of Phone Billing Address Personal/Family [address] [place] [address] [employer] (INTERNAL) [facility] [place] [employer] * Guarantor: [employer] D [employer]) Account Type Relation to Patient Date of Phone Billing Address Corporate Employer DEFAULT ADDRESS [address] [employer] * Guarantor: 2020 [facility] C AND D (C) Account Type Relation to Patient Date of Phone Billing Address Corporate Employer DEFAULT ADDRESS [address] [employer] * Guarantor: [facility] [employer]) Account Type Relation to Patient Date of Phone Billing Address Corporate Other DEFAULT ADDRESS [address] [employer] Advance Directives For more information, please contact: [phone] Documents on File Type Date Recorded Patient Curtain Fitter Expl anation Advance Directive POA 08/16/2017 2:25 PM A dvance Directive POA Advance Directive Living Will 08/16/2017 2:25 PM Advance Directive Living Will Care Teams Tube Fitter Relationship Specialty Start Date End Date Johnson Jean MD [address] [place] [address] PCP - General Internal Medicine 02/20/12
--- OUTSIDE RECORDS SUMMARY | 2025-02-09 13:08 | XMS_ITS | Encounter Summary ---
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
--- OUTSIDE RECORDS SUMMARY | 2025-02-09 13:08 | XMS_ITS | Patient Health Record ---
Author Organization [facility] Address [address] [place] [address] Care Team Providers Care Criminal Intelligence Specialist Name Role Phone [facility] Angel ROBLES Primary Care Provider Un available Víctor Pool Unavailable [phone] Reason For Referral No Information Problems Problem Type SNOMED Code ICD Code Onset Dates Problem Status W/U Status Risk Notes Problem Arthropathy of lumbar facet joint (disorder) (706595344) Facet arthropathy , lumbar (M47.816) Active confirmed Plan Of Treatment Pending Test Test Name Order Date Prothrombin Time 26629 06/05/2023 Basic Metabolic Panel (BMP) 43292 2023 CBC w\ Auto Diff 27224 06/05/2023 Partial Thromboplastin Time 26063 2023 Chest PA/Lat-98552 06/05/2023 Chest PA/Lat-62134 06/12/2023 Electrocardiogram 12 Lead Tracing-27637 06/05/2023 zzzFluoroscopy 06/19/2023 zzzMRI Outside CD 05/15/2023 IH Lumbosacral Spine AP/Lat - 84640 05/28 IH Lumbosacral Spine AP/Lat - 83608 05/28 Insurance Providers Payer Name Payer Address Payer Phone Subscriber Number Group Number Insured Name Patient Relationship to Insured Coverage Start Date Coverage End Date [employer] [address] [place] [phone] [id number] Atul Fong Self - patient is the insured
--- OUTSIDE RECORDS SUMMARY | 2025-02-09 13:08 | XMS_ITS | Encounter Summary ---
Author Organization [facility] Address [address] [place] [address] Care Team Providers Care Test Deck Supervisor Name Role Phone Johnson Jean MD Primary Care Provider Encounter Details Date Type Department Care Team (Latest Contact Info) Description 07/04/2009 Outpatient Historical [facility] [address] 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
--- OUTSIDE RECORDS SUMMARY | 2025-02-09 13:08 | XMS_ITS | Encounter Summary ---
Author Organization [facility] Address [address] [place] [address] Care Team Providers Care Painter Railroad Car Name Role Phone Johnson Jean MD Primary Care Provider Encounter Details Date Type Department Care Team (Late st Contact Info) Description 08/24/[address] [facility] Family Medicine[address] [phone] Chidi Adler MD [address] [phone] Social History Tobacco Use Types Packs/Day Years Used Date Smoking Tobacco: Never Assessed Sex and Gender Information Value Date Recorded Sex Assigned at Not on file Legal Sex Male 6:27 AM APPRAISAL SPECIALIST Gender Identity Not on file Sexual Orientation Not on file documented as of this encounter Plan of Treatment Not on file documented as of this encounter Visit Diagnoses Not on filedocumented in this encounter Care Teams Painter Railroad Car Relationship Specialty Start Date End Date Johnson Jean MD [address] [place] [address] PCP - General Internal Medicine 02/20/12 documented as of this encounter
--- OUTSIDE RECORDS SUMMARY | 2025-02-09 13:08 | XMS_ITS | Encounter Summary ---
Author Organization [facility] Address [address] [place] [address] Care Team Providers Care Photoflash Powder Mixer Name Role Phone Johnson Jean MD Primary Care Provider Encounter Details Date Type Department Care Team (Late st Contact Info) Description 02/18/2012 Ancillary Orders [facility] [place] [address] [place] [address] Amilcar Lux PA NO ADDRESS ON FILE Social History Tobacco Use Types Packs/Day Years Used Date Smoking Tobacco: Never Alcohol Use Standard Drinks/Week Comments Yes 3.3 (1 standard drink = 0.6 oz p ure alcohol) Sex and Gender Information Value Date Recorded Sex Assigned at Not on file Legal Sex Male 6:27 AM CLINICAL MEDICAL TRANSCRIPTIONIST Gender Identity Not on file Sexual Orientation Not on file documented as of this encounter Plan of Treatment Not on file documented as of this encounter Visit Diagnoses Not on filedocumented in this encounter Care Teams Photoflash Powder Mixer Relationship Specialty Start Date End Date Johnson Jean MD [address] [place] [address] PCP - General Internal Medicine 02/20/12 documented as of this encounter
--- OUTSIDE RECORDS SUMMARY | 2025-02-09 13:08 | XMS_ITS | Encounter Summary ---
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
--- OUTSIDE RECORDS SUMMARY | 2025-02-09 13:08 | XMS_ITS | Encounter Summary ---
Author Organization [facility] Address [address] [place] [address] Care Team Providers Care Promotional Marketing Analyst Name Role Phone Johnson Jean MD Primary Care Provider Encounter Details Date Type Department Care Team (Latest Contact Info) Description 03/18/2003 Outpatient Historical [facility] Medicine[address] [address] Andrew Hernandez MD [address] [phone] Pure hypercholesterolem (Primary Dx); AFTERCARE SNF USE MEDICATN; Vaccine for influenza Social History Tobacco Use Types Packs/Day Years Used Date Smoking Tobacco: Never Assessed Sex and Gender Information Value Date Recorded Sex Assigned at Not on file Legal Sex Male 6:27 AM MANAGER INTEGRATION Gender Identity Not on file Sexual Orientation Not on file documented as of this encounter Plan of Treatment Not on file documented as of this encounter Visit Diagnoses Diagnosis Pure hypercholesterolem- Primary Pure hypercholesterolemia Encounter for long-term (current) use of other medications Vaccine for influenza Need for prophylactic vaccination and inoculation against influenza documented in this encounter Care Teams Promotional Marketing Analyst Relationship Specialty Start Date End Date Johnson Jean MD [address] [place] [address] PCP - General Internal Medicine 02/20/12 documented as of this encounter
--- OUTSIDE RECORDS SUMMARY | 2025-02-09 13:08 | XMS_ITS | Encounter Summary ---
Author Organization [facility] Address [address] [place] [address] Care Team Providers Care Supervisor Telephone Information Name Role Phone Johnson Jean MD Primary Care Provider Encounter Details Date Type Department Care Team (Late st Contact Info) Description 02/18/2012 Ancillary Orders [facility] [place] [address] [place] [address] [facility] , FRITZ Petersen [address] [place] [address] Social History Tobacco Use Types Packs/Day Years Used Date Smoking Tobacco: Never Alcohol Use Standard Drinks/Week Comments Yes 3.3 (1 standard drink = 0.6 oz p ure alcohol) Sex and Gender Information Value Date Recorded Sex Assigned at Not on file Legal Sex Male 6:27 AM TRANSITION MANAGER Gender Identity Not on file Sexual Orientation Not on file documented as of this encounter Plan of Treatment Not on file documented as of this encounter Visit Diagnoses Not on filedocumented in this encounter Care Teams Supervisor Telephone Information Relationship Specialty Start Date End Date Johnson Jean MD [address] [place] [address] PCP - General Internal Medicine 02/20/12 documented as of this encounter
--- OUTSIDE RECORDS SUMMARY | 2025-02-09 13:08 | XMS_ITS | Clinical Summary ---
Author Organization [facility] Address [address] [place] [address] Care Team Providers Care Hotel Assistant Manager Name Role Phone Johnson Jean MD Primary Care Provider Allergies No known active allergies Medications carvedilol (COREG) 25 mg Oral tablet Take 25 mg by mouth 2 times daily with meals. Active omeprazole (PRILOSEC) 20 mg Oral CpDR Take 20 mg by mouth daily powder hand . Active clonazePAM (KLONOPIN) 1 mg Oral tablet Take 1 mg by mouth 2 times daily . Active atorvastatin (LIPITOR) 80 mg tablet Take 80 mg by mouth late in the day. Active lisinopril-hydr oCHLOROthiazide (ZESTORETIC) 20-12.5 mg tablet Take 1 Tablet by mouth daily powder hand. Active aspirin buffered (BUFFERIN) 325 mg tablet Take 1 Tablet by mouth 2 times daily. Active cholecalciferol , Vitamin D3, (VITAMIN D3) 1,000 unit Capsule Take by mouth daily. Active PARoxetine HCl (PAXIL) 40 mg tablet Take 40 mg by mouth daily. Active Active Problems Problem Noted Date Diagnosed Date Status post total left knee replacement sx 09/02/17, w/Dr Mccarty. 09/18/2017 Preoperative general physical examination 2017 Chewing tobacco use 08/16/2017 Major depression 08/16/2017 Severe obesity (BMI 35.0-39.9) with comorbidity 08/16/2017 Anemia 08/16/2017 Left inguinal hernia 07/31/2017 CAD (coronary artery disease) 02/20/2012 Essential hypertension GERD (gastroesophageal reflux disease) Hyperlipidemia Resolved Problems Problem Noted Date Diagnosed Date Resolved Date Primary osteoarthritis of left knee 07/09/2017 09/18/2017 Immunizations Immunization Administration Dates Next Due (TDVAX)(7 [...] Date Smoking Tobacco: Never Smokeless Tobacco: Current Chew Alcohol Use Standard Drinks/Week Comments Yes 0 (1 standard drink = 0.6 oz pur e alcohol) 1 drink once weekly Sex and Gender Information Value Date Recorded Sex Assigned at Not on file 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 Gender Identity Not on file Sexual Orientation Not on file Last Filed Vital Signs Vital Sign Reading Time Taken Comments Blood Pressure 104/65 09/02/2018 10:39 AM CDT Pulse 54 09/02/2018 10:39 AM CDT Temperature 36.8 C (98.3 F) 09/04/2017 8:05 AM CDT Respiratory Rate 17 09/04/2017 8:05 AM CDT Oxygen Saturation 96% 09/04/2017 8:05 AM CDT Inhaled Oxygen Concentration - - Weight 129.3 kg (285 lb) 09/02/2018 10:39 AM CDT Height 182.9 cm (6') 09/02/2018 10:39 AM CDT Body Mass Index 38.65 09/02/2018 10:39 AM CDT Plan of Treatment Health Maintenance Due Date Last Done Comments Pre-Diabetes and Diabetes Screening 1960 FIT-DNA Q 3 years 2007 FIT/FOBT Q 1 year 2007 Flex Sig/CT Colonography Q 5 years 2007 ZOSTER VACCINE (1 of 2) 2012 RSV VACCINE (60+ or ) (1 - Risk 60-74 years 1-dose series) 2022 DTAP/TDAP/TD VACCINES (2 - T d or Tdap) 12/01/2022 12/01/2012, 02/16/2003 INFLUENZA VACCINE (#1) 2024 , 05/01/2017, 03/26/2016, Additional history exists COLORECTAL SCREENING 01/16/2028 01/15/2018, 01/15/2018, 01/15/2018 Colorectal Cancer Screening 01/16/2028 Medical Devices Implanted Type Area Cardiology Teacher Device Identifier Shelf Expiration Date Model / Serial / Lot Cement Simplex Hvisc 6194-1-010 - [id number] Implanted:Qty: 1 on 09/02/2017 by Omar Mccarty MD at [facility] Cement Left: Knee [employer]LENA- [employer] 01/24/2019 6194-1-010 / / [id number] Cement Simplex Hvisc 6194-1-010 - [id number] Implanted:Qty: 1 on 09/02/2017 by Omar Mccarty MD at [facility] Cement Left: Knee [employer]LENA- [employer] 01/24/2019 6194-1-010 / / [id number] Patella Gnsii Resurf 35mm [id number] - [id number] Implanted:Qty: 1 on 09/02/2017 by Omar Mccarty MD at [facility] Knee Left: Knee WEI NEPHEW ORTHO 04/03/2027 [id number] / / [id number] Comp Tib Gnsii 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 Sz6 [id number] - [id number] Implanted:Qty: 1 on 09/02/2017 by Omar Mccarty MD at [facility] Knee Left: Knee [employer] 07/16/2027 [id number] / / [id number] Comp Fem Gnsii Oxnm Cr Sz6 2408-5771 - [id number] Implanted:Qty: 1 on 09/02/2017 by mOar Mccarty MD at [facility] Knee Left: Knee [employer] 02/09/2027 [id number] / / [id number] Ins Lgn Xlpe Dshd Sz5-6 0252-8336 - [id number] Implanted:Qty: 1 on 09/02/2017 by Omar Mccarty MD at [facility] Knee Left: Knee [employer]PHEW [employer] 12/16/2026 [id number] / / [id number] Mesh Bard 8rsr3ft [id number] - [id number] Implanted:Qty: 1 on 07/31/2017 by Thee Cuenca MD at [facility] Mesh Left: Groin CR BARD- [employer] 03/23/2022 [id number] / / [id number] Insurance [facility] [address] [place] [address] RX [employer] PLANS (INTERNAL) [facility] RX [employer] Express Advance Directives For more information, please contact: [phone] Documents on File Type Date Recorded 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 Advance Directive POA 08/16/2017 2:25 PM A dvance Directive POA Advance Directive Living Will 08/16/2017 2:25 PM Advance Directive Living Will * Full Code (Latest Code Status on File) Date Activated Date Inactivated Comments 09/02/2017 10:28 AM 09/04/2017 2:08 PM * Full Code Date Activated Date Inactivated Comments 09/02/2017 6:37 AM 09/02/2017 10:28 AM * Full Code Date Activated Date Inactivated Comments 09/02/2017 5:44 AM 09/02/2017 6:37 AM * Full Code Date Activated Date Inactivated Comments 07/31/2017 10:19 AM 07/31/2017 6:10 PM Care Teams Hotel Assistant Manager Relationship Specialty Start Date End Date Johnson Jean MD [address] [facility] [place] [facility] [place] [id number] PCP - General Internal Medicine 02/20/12
--- OUTSIDE RECORDS SUMMARY | 2025-02-09 13:08 | XMS_ITS | Encounter Summary ---
Author Organization [facility] Address [address] [place] [address] Care Team Providers Care Palliative Care Coordinator Name Role Phone Johnson Jean MD Primary Care Provider Encounter Details Date Type Department Care Team (Late st Contact Info) Description 03/18/2003 Outpatient Historical 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
--- OUTSIDE RECORDS SUMMARY | 2025-02-09 13:08 | XMS_ITS | Encounter Summary ---
Author Organization [facility] Address [address] [place] [address] Care Team Providers Care Dam Operator Name Role Phone Johnson Jean MD Primary Care Provider Encounter Details Date Type Department Care Team (Latest Contact Info) Description 02/08/2003 Outpatient Historical [address] [phone] Servando Gonzalez MD [address] [place] [phone] LUMBAGO (Primary Dx); NEUROTIC DEPRESSION; GENERALIZED ANXIETY DIS; Pure hypercholesterolem Social History Tobacco Use Types Packs/Day Years Used Date Smoking Tobacco: Never Assessed Sex and Gender Information Value Date Recorded Sex Assigned at Not on file 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
--- NOTE | 2025-02-09 15:49 | XR_ITS ---
WS: [id number] XR chest 1V portable [id number] REASON FOR EXAM: dizzy FINDINGS: No previous examination for comparison. The heart and the mediastinum are within normal limits. Calcified granulomatous disease bilaterally. Oblique opacities in the left lower lung field, retrocardiac. Left Tavares diaphragmatic contour is obscured. There is old pleural pericardial reaction. XR/XR chest 1V portable [id number] IMPRESSION: Findings in the left lower hemithorax which may be chronic, however, no previou s comparison examination. Left lower lobe not excluded.
--- NOTE | 2025-02-09 15:50 | ECG_ITS ---
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 Measurements Intervals [place] Rate: 55 P: -64 RI: 186 QRS: -48 QRSD: 161 T: -3 QT: 485 QTc: 467 Interpretive Statements SINUS BRADYCARDIA RIGHT BUNDLE BRANCH BLOCK [120+ ms QRS DURATION, UPRIGHT V1, 40+ ms S IN I/aVL/V4/V5/V6] LEFT ANTERIOR FASCICULAR BLOCK [QRS AXIS <= -45, QR IN I, RS IN II] MINIMAL VOLTAGE CRITERIA FOR LVH, CONSIDER NORMAL VARIANT [MEETS CRITERIA IN ONE OF: R(aVL), S(V1), R(V5), R(V5/V6)+S(V1)] MODERATE T-WAVE ABNORMALITY, CONSIDER LATERAL ISCHEMIA [-0.1+ mV T-WAVE IN I/aVL/V5/V6] Compared to ECG 07/24/2024 10:55:40 Left anterior fascicular block now present T-wave abnormality now present.Possible ischemia now present First degree AV block no longer present.Left-axis deviation no longer present Electronically Signed On 02-09-2025 17:41:31 CDT by Dorian Sapp M.D. [email or web address]
[2025-02-09 15:51] LABS: Hematocrit 41.7 % (37-53); Hemoglobin 14.00 g/dL (11.27-16.99); Mean Corpuscular HGB Conc 33.6 g/dL (30-55); Mean Corpuscular Hemoglobin 29.1 pg (27-33); Mean Corpuscular Volume 86.7 fl (82-101); Nucleated Red Blood Cells % 0 %; Platelet Count 213 10^3/cmm (157-399); Red Blood Count 4.81 10^6/uL (3.85-5.65); White Blood Count 8.96 10^3/uL (3.29-11.43)
--- NOTE | 2025-02-09 15:57 | W.ED.WEAKNES ---
HPI - Weakness General: Chief complaint: Weakness Stated complaint: low BP and [facility] Time Seen by Provider: 02/09/25 15:32 Source: patient Mode of arrival: ambulatory Limitations: no limitations History of Present Illness: Patient is a 64-year-old male with a history of hypertension, coronary artery disease with 2 prior stents, and angina who presents for evaluation of low blood pressure and dizziness. He reports several days of lightheadedness with standing, and this morning experienced a fall without loss of consciousness or injury, prompting him to seek care [facility]. At that facility he was found to be hypotensive to 90/60 with orthostatic changes and was referred to the ED for cardiac evaluation. He took all 3 of his prescribed antihypertensives this morning. Currently he denies chest pain, shortness of breath, palpitations, syncope, orthopnea, or peripheral edema. He also reports no recent medication changes. He has had previous echocardiogram in the past showing no abnormalities, denies personal history of heart attack or stroke. Current blood pressure is 112/71. He denies any recent illness, diaphoresis, nausea/vomiting, or focal neurological deficit. His supervisor wool shearing is Dr. Sapp. Duration: now resolved Severity: similar to previous episodes Associated symptoms: Reports no associated symptoms; Denies chest pain, chills, dysuria, fever(s), headache(s), nausea or vomiting Related Data Home Medications ?Medication ?Instructions ?Recorded ?Confirmed atorvastatin 80 mg tablet 80 mg PO DAILY 07/06/20 09/02/24 cetirizine 10 mg tablet 10 mg PO DAILY 07/06/20 09/02/24 cholecalciferol (vitamin D3) 25 25 mcg PO DAILY 07/06/20 09/02/24 mcg (1,000 unit) capsule carvedilol 25 mg tablet 25 mg PO BID 08/10/20 09/02/24 lisinopril 40 mg tablet 40 mg PO DAILY 03/16/21 09/02/24 clonazepam 1 mg tablet 1 mg PO BID PRN Anxiety 09/20/21 09/02/24 fluoxetine 20 mg capsule 60 mg PO DAILY 03/21/22 09/02/24 bupropion HCl 100 mg tablet 100 mg PO DAILY 03/22/22 09/02/24 furosemide 20 mg tablet 20 mg PO DAILY 08/11/24 09/02/24 Previous Rx's ?Medication ?Instructions ?Recorded aspirin 81 mg tablet,delayed 81 mg PO DAILY #90 tabs 12/30/20 release (Adult Aspirin Regimen) chlorthalidone 25 mg tablet 25 mg PO DAILY #30 tabs 01/18/21 pantoprazole 40 mg tablet,delayed 40 mg PO DAILY #90 tabs 04/17/21 release nitroglycerin 0.4 mg sublingual 0.4 mg sublingual Q5M PRN chest 10/04/22 tablet pain 30 days #30 tabs urea 40 % topical cream 1 applic topical TID #198 grams 08/17/24 evolocumab 140 mg/mL subcutaneous 140 mg SUBCUT .every 2 weeks #1 mL 09/10/24 syringe (Repatha Syringe) Allergies Allergy/AdvReac Type Severity Reaction Status Date / Time No Known Allergies Allergy Verified 09/02/24 12:57 Review of Systems General: Reports: 10 or more systems reviewed and unremarkable except in HPI and below Const: Denies: fever(s), chills or fatigue Eyes: Denies: change in vision ENMT: Denies: throat pain, ear or mastoid pain or nasal discharge Card: Reports: pre-syncope; Denies: chest pain, palpitations, swelling of feet/ankles, lightheadedness or dyspnea on exertion Resp: Denies: dyspnea, productive cough or wheezing GI: Denies: abdominal pain, nausea, vomiting, diarrhea or constipation : Denies: flank pain, difficulty urinating, dysuria or urinary frequency Musc: Denies: neck pain, back pain or joint pain Skin/Breast: Denies: rash Neuro: Reports: dizziness; Denies: headache(s), numbness in extremities or weakness in extremities PFSH ED PFSH: Medical History Benign essential HTN Hx of angina pectoris Hx of migraine headaches History of panic disorder Hx of hiatal hernia Hx of smoking Hx of chest pain Hx of essential hypertension Hx of gastroesophageal reflux (GERD) Hx of hyperlipidemia Hx of insomnia Hx of obesity Hx of osteoarthritis History of posttraumatic stress disorder (PTSD) Xanthelasma History of agoraphobia History of cellulitis Hx of anxiety disorder Chronic low back pain Surgical History History of PTCA Hx of CABG H/O total knee replacement Hx of inguinal hernia repair Hx of shoulder surgery Hx of elbow surgery Hx of hammer toe correction Family History Sister CAD (coronary artery disease) Cancer Mother Dementia CAD (coronary artery disease) Family/Other CAD (coronary artery disease) Cancer Grandfather CAD (coronary artery disease) Grandmother CAD (coronary artery disease) Denies family history of Diabetes Clotting disorder Chronic kidney disease (CKD) Suicide Anesthesia complication Bleeding disorder Lung disease Stroke Social History Smoking and tobacco/nicotine status: never used tobacco/nicotine Alcohol intake: former Substance/Drug Use: never Physical Exam Const: COMMON NORMALS: no acute distress, patient oriented x3 and no limitations GENERAL APPEARANCE: cooperative, comfortable and well developed ORIENTATION/CONSCIOUSNESS: Yes awake, Yes oriented to person, Yes oriented to place and Yes oriented to time HENMT: COMMON NORMALS: normocephalic, atraumatic and hearing grossly normal bilaterally HEAD & SCALP: normocephalic and atraumatic Eye: COMMON NORMALS: Equal, round and reactive pupils present, EOMs intact bilaterally and conjunctivae normal CONJUNCTIVA: Yes conjunctivae normal PUPIL: Yes Equal, round and reactive pupils present Neck/C-Spine: COMMON NORMALS: full ROM, supple and no JVD Resp: COMMON NORMALS: normal respiratory effort, No retractions, No use of accessory muscles and clear to auscultation bilaterally AUSCULTATION: clear to auscultation bilaterally Cardio: COMMON NORMALS: no JVD, regular rate, regular rhythm, No clicks present (Cardio), No murmurs present (Cardio) and No rub (Cardio) RATE: regular rate RHYTHM: regular rhythm GI: COMMON NORMALS: Normal to inspection, nondistended, normoactive bowel sounds present, Soft to palpation and non-tender AUSCULTATION: Yes normoactive bowel sounds PALPATION: Yes Soft to palpation RECTAL EXAM: Yes deferred Extremity: COMMON NORMALS: normal to inspection, full ROM and capillary refill normal Neuro: COMMON NORMALS: patient oriented x3, moves all extremities, no focal motor deficits and no sensory deficits noted SENSORIUM/ORIENTATION: Yes oriented to person, Yes oriented to place and Yes oriented to time Psych: COMMON NORMALS: mental status grossly normal and Normal thought process present THOUGHT PROCESS: Normal thought process present Skin: COMMON NORMALS: no rashes or lesions noted GENERAL SKIN EXAM: no rashes or lesions noted Course Vital Signs: Vital signs: Vital Signs Temperature 98.1 F 02/09/25 12:41 Pulse Rate 52 L 02/09/25 19:05 Respiratory Rate 18 02/09/25 19:05 Blood Pressure 105/70 02/09/25 19:05 Pulse Oximetry 97 02/09/25 19:05 Oxygen Delivery Me thod Room Air 02/09/25 18:32 MDM - Weakness Medical Decision Making Patient presented from the [facility] with concerns of being orthostatic, had low blood pressure readings they are of 90/60, and had a syncopal episode this morning. Sees Dr. Sapp for cardiology. With his history, states that he has no symptoms at this time, only feels mildly dizzy when he stands up and this has been going on for a few days. EKG obtained and reviewed with physician is not showing any significant changes from previous months ago, and 2-hour EKG also unchanged. He has a history of bradycardia. History of 2 cardiac stents. Chest x-ray is overall unremarkable, lung auscultation and cardiac auscultation also unremarkable and overall the exam is reassuring. Possible signs of clinical dehydration with slight bump in creatinine, though his delta troponin is negative and I have low suspicion that his symptoms are cardiac in nature. I suspect that they are from dehydration or medication related with his taking carvedilol, lisinopril, chlorthalidone, and Lasix. He is ambulated and this is without difficulty following fluid administration, and blood pressure has been stable here in the emergency department. Overall I do not feel he needs to come to the hospital for any further workup, he does have cardiology appointment tomorrow as an outpatient he will attend this, in the meantime he is given strict return precautions. He agrees with this plan and is ready to go home. Lab Data 02/09/25 15:44 02/09/25 15:44 Radiology Impressions Chest X-Ray 02/09/25 15:49 IMPRESSION: Findings in the left lower hemithorax which may be chronic, however, no previous comparison examination. Left lower lobe not excluded. Laboratory Results WBC 8.96 10^3/uL (3.29-11.43) 02/09/25 15:44 RBC 4.81 10^6/uL (3.85-5.65) 02/09/25 15:44 Hgb 14.00 g/dL (11.27-16.99) 02/09/25 15:44 Hct 41.7 % (37-53) 02/09/25 15:44 MCV 86.7 fl (82-101) 02/09/25 15:44 MCH 29.1 pg (27-33) 02/09/25 15:44 MCHC 33.6 g/dL (30-55) 02/09/25 15:44 RDW 13.0 % (12.1-15.1) 02/09/25 15:44 Plt Count 213 10^3/cmm (157-399) 02/09/25 15:44 MPV 9.2 fL (7.4-10.4) 02/09/25 15:44 Neut % (Auto) 65.9 % 02/09/25 15:44 Lymph % (Auto) 24.1 % 02/09/25 15:44 [place] % (Auto) 8.5 % 02/09/25 15:44 Eos % (Auto) 1.0 % 02/09/25 15:44 Baso % (Auto) 0.1 % 02/09/25 15:44 Neut # (Auto) 5.90 10^3/uL (1.8-7.7) 02/09/25 15:44 Lymph # (Auto) 2.2 10^3/uL (0.8-4.8) 02/09/25 15:44 [place] # (Auto) 0.8 10^3/uL (0.2-0.9) 02/09/25 15:44 Eos # (Auto) 0.1 10^3/uL (0.0-0.8) 02/09/25 15:44 Baso # (Auto) 0.0 10^3/uL (0.0-0.1) 02/09/25 15:44 Nucleated RBC % (auto) 0 % 02/09/25 15:44 Nucleated RBCs # 0.0 /100WBC 02/09/25 15:44 Sodium 138 mmol/L (136-145) 02/09/25 15:44 Potassium 3.3 mmol/L (3.5-5.1) L 02/09/25 15:44 Chloride 99 mmol/L (98-107) 02/09/25 15:44 Carbon Dioxide 24 mmol/L (22-29) 02/09/25 15:44 Anion Gap 18.3 (5-19) 02/09/25 15:44 BUN 43 mg/dL (8-23) H 02/09/25 15:44 Creatinine 1.3 mg/dL (0.7-1.2) H 02/09/25 15:44 GFR Calculation 55.9 mL/min (90-130) L 02/09/25 15:44 Glucose 97 mg/dL (65-115) 02/09/25 15:44 Calculated Osmolality 297 mOsm/kg (285-295) H 02/09/25 15:44 Calcium 9.9 mg/dL (8.5-10.5) 02/09/25 15:44 Total Bilirubin 0.6 mg/dL (0.15-1.2) 02/09/25 15:44 AST 18 U/L (0-40) 02/09/25 15:44 ALT 21 U/L (0-41) 02/09/25 15:44 Alkaline Phosphatase 84 U/L (40-130) 02/09/25 15:44 Troponin T Baseline 22 ng/L (0-15) H 02/09/25 15:44 Troponin T 120 Minute 18.07 ng/L (0-15) H 02/09/25 17:46 Delta Troponin T -3.93 ABS# (0-10) L 02/09/25 17:46 Total Protein 7.2 g/dL (6.6-8.7) 02/09/25 15:44 Albumin 4.5 g/dL (3.5-5.2) 02/09/25 15:44 Globulin 2.7 g/dL (1.3-4.6) 02/09/25 15:44 All radiology interpretation(s) finalized by discharge Discharge Plan Discharge Patient Disposition: Home Clinical Impression: Dehydration, Orthostatic syncope Condition: Stable Prescriptions: No Action atorvastatin 80 mg tablet 80 mg PO DAILY cholecalciferol (vitamin D3) 25 mcg (1,000 unit) capsule 25 mcg PO DAILY cetirizine 10 mg tablet 10 mg PO DAILY clonazepam 1 mg tablet 1 mg PO BID PRN (Reason: Anxiety) fluoxetine 20 mg capsule 60 mg PO DAILY Rx Instructions: 2 caps qam lisinopril 40 mg tablet 40 mg PO DAILY aspirin [Adult Aspirin Regimen] 81 mg tablet,delayed release (DR/EC) 81 mg PO DAILY Qty: 90 4RF nitroglycerin 0.4 mg tablet, sublingual 0.4 mg sublingual Q5M PRN (Reason: chest pain) 30 Days Qty: 30 3RF Rx Instructions: until response; do not exceed 3 doses per episode urea 40 % cream 1 applic topical TID Qty: 198 4RF bupropion HCl 100 mg tablet 100 mg PO DAILY carvedilol 25 mg tablet 25 mg PO BID Rx Instructions: must administer with a meal/food chlorthalidone 25 mg tablet 25 mg PO DAILY Qty: 30 5RF pantoprazole 40 mg tablet,delayed release (DR/EC) 40 mg PO DAILY Qty: 90 3RF Repatha Syringe 140 mg/mL syringe 140 mg SUBCUT .every 2 weeks Qty: 1 12RF furosemide 20 mg Tablet 20 mg PO DAILY Discharge Orders: Discharge ED (Routine); Ordered 02/09/25 Ordered By: Servando Vasquez Referrals: Columba Hooks MD [Primary Care Provider, [facility]] Patient Instructions: Patient Portal & Nas Instructions Activity Restrictions/Additional Instructions: Orthostatic Symptom Discharge Discharge Instructions: Orthostatic Symptoms, Dehydration, and Polypharmacy Summary of ED Course: 64-year-old male presented with orthostatic symptoms. Cardiac evaluation (serial troponins, ECG, chest X-ray) was negative for acute coronary syndrome. Laboratory studies were unremarkable except for clinical dehydration. Symptoms improved with intravenous fluids. Polypharmacy with antihypertensive agents is a likely contributing factor. Cardiology follow-up is scheduled for tomorrow. --- 1. Activity and Positioning - Advise the patient to rise slowly from sitting or lying positions to minimize orthostatic symptoms. - Avoid sudden changes in posture, especially after prolonged recumbency. 2. Hydration and Diet - Encourage oral fluid intake, aiming for at least 2?2.5 liters of water daily, unless contraindicated by comorbidities (e.g., heart failure, renal impairment). - Consider moderate sodium intake if not contraindicated, as increased salt and fluid intake may improve orthostatic tolerance. - Recommend small, frequent meals to reduce postprandial hypotension. 3. Medication Management - Review antihypertensive and other medications with outpatient providers. - Reduction or withdrawal of medications that may cause hypotension (e.g., diuretics, vasodilators) can be beneficial, but should be done under close supervision. - Bring all current medications to the cardiology appointment for reconciliation. 4. Nonpharmacologic Measures - Consider use of compression garments (e.g., abdominal binder) if symptoms persist, as these may improve upright blood pressure. - Physical counterpressure maneuvers (leg crossing, muscle tensing) may be used if symptoms recur. 5. Physical Activity - Encourage regular, gentle physical activity to avoid deconditioning, which can worsen orthostatic intolerance. 6. Follow-Up - Attend scheduled cardiology appointment for further evaluation and medication management. 7. Strict Return Precautions Return to the emergency department immediately for any of the following: - Chest pain, palpitations, or new shortness of breath - Syncope or near-syncope - Focal neurological deficits (e.g., weakness, numbness, speech changes) - Persistent vomiting or inability to maintain oral hydration - Severe dizziness or inability to ambulate safely - New or worsening confusion --- Patient Education - Orthostatic hypotension is often due to dehydration or medication effects in older adults. - Most cases improve with supportive care and medication review. - Acute coronary syndrome is not suspected based on current evaluation. Print Language: Congolese Coding Level of Care Code ED Section Housekeeper for Franko Keating
[2025-02-09 16:12] LABS: Alanine Aminotransferase 21 U/L (0-41); Albumin Level 4.5 g/dL (3.5-5.2); Alkaline Phosphatase 84 U/L (40-130); Anion Gap 18.3 (5-19); Aspartate Amino Transferase 18 U/L (0-40); Blood Urea Nitrogen 43 mg/dL (8-23); Calcium 9.9 mg/dL (8.5-10.5); Carbon Dioxide 24 mmol/L (22-29); Chloride 99 mmol/L (98-107); Creatinine Clr Calc Pharmacy 84.4617; Globulin 2.7 g/dL (1.3-4.6); Glucose 97 mg/dL (65-115); Osmolality Calculated 297 mOsm/kg (285-295); Potassium 3.3 mmol/L (3.5-5.1); Sodium 138 mmol/L (136-145); Total Protein 7.2 g/dL (6.6-8.7)
[2025-02-09 16:28] LABS: Troponin(5th) Baseline 22 ng/L (0-15)
--- NOTE | 2025-02-09 17:41 | ECG_ITS ---
[email or web address] Test Date: 2025-02-09 Pat Name: Atul Fong Department: Room: Gender: Male [employer] Magistrate: : [id number] Requested By: Servando Pop Order Number: [id number] Carmelita MD: Dorian Sapp M.D. Measurements Intervals [place] Rate: 54 P: 39 MO: 220 QRS: -42 QRSD: 161 T: -1 QT: 497 QTc: 474 Interpretive Statements SINUS BRADYCARDIA WITH FIRST DEGREE AV BLOCK LEFT AXIS DEVIATION [QRS AXIS < -30] RIGHT BUNDLE BRANCH BLOCK [120+ ms QRS DURATION, UPRIGHT V1, 40+ ms S IN I/aVL/V4/V5/V6] MODERATE T-WAVE ABNORMALITY, CONSIDER LATERAL ISCHEMIA [-0.1+ mV T-WAVE IN I/aVL/V5/V6] Compared to ECG 02/09/2025 16:19:19 First degree AV block now present Left-axis deviation now present Left anterior fascicular block no longer present T-wave abnormality still present Possible ischemia still present Electronically Signed On 02-09-2025 17:56:10 CDT by Dorian Sapp M.D. [id number] [id number]
[2025-02-09 18:30] LABS: Troponin 5 2HR 18.07 ng/L (0-15); Troponin 5 2HR Delta -3.93 ABS# (0-10)
[2025-02-10 13:19] LABS: HIV 1 & 2 Antigen Non-Reactive (Non-Reactiv)
[2025-02-10 16:56] LABS: Hepatitis B Surface Antigen Non-Reactive (Nonreactive)
== END 2025-02-09 19:06 | disposition home or self-care (01) ==
PROVIDERS: Family Medicine; Emergency Provider Physician Assistant; PCP Family Medicine
DX: E86.0 Dehydration (principal); I95.1 Orthostatic hypotension; Z79.82 Long term (current) use of aspirin; Z95.1 Presence of aortocoronary bypass graft; E78.5 Hyperlipidemia, unspecified; I10 Essential (primary) hypertension
CPT/HCPCS: 36415; 71045; 80053; 84484; 85025; 86803; 87340; 87806; 93005; 99285; J7030

== ENCOUNTER → 2025-02-10 14:18 | Outpatient (BNVA) | payer OTHER, SELFPAY | PROVIDERS: PCP Family Medicine; Visit Provider Internal Medicine Cardiovascular Disease | DX: I25.10 Atherosclerotic heart disease of native coronary artery without angina pectoris (principal); E78.2 Mixed hyperlipidemia; I95.1 Orthostatic hypotension; R00.1 Bradycardia, unspecified; E66.01 Morbid (severe) obesity due to excess calories; Z68.41 Body mass index [BMI] 40.0-44.9, adult; I10 Essential (primary) hypertension; Z95.1 Presence of aortocoronary bypass graft; Z98.61 Coronary angioplasty status; E78.5 Hyperlipidemia, unspecified | CPT/HCPCS: 99214 ==

== ENCOUNTER 2025-02-22 09:48 | Outpatient (CLI) | payer OTHER, SELFPAY ==
[2025-02-22 11:43] LABS: Cholesterol 166 mg/dL (0-200); HDL Cholesterol 53 mg/dL (60-100); Triglycerides 229 mg/dL (0-150)
== END 2025-02-22 09:49 | disposition home or self-care (01) ==
LOC: LAB 09:50
PROVIDERS: PCP Family Medicine; Visit Provider Internal Medicine Cardiovascular Disease
DX: E78.5 Hyperlipidemia, unspecified (principal)
CPT/HCPCS: 36415; 80061

== ENCOUNTER 2025-03-17 10:21 | Outpatient (CLI) | payer OTHER, SELFPAY ==
--- NOTE | 2025-03-17 10:28 | XR_ITS ---
WS: [email or web address] Sinus series, 3 views, 03/17/2025 Clinical Data: CHRONIC SINUSITIS Comparison: None. Findings: The sinuses are clear. No air-fluid levels are seen. There is no mucoperiosteal thickening or air-fluid levels. The orbits are clear. The sella turcica is normal. There are pineal calcifications. XR/XR sinus <3V 05142 Impression: Negative sinus series.
--- NOTE | 2025-03-17 10:28 | XR_ITS ---
WS: [email or web address] Right shoulder, 2 views, 03/17/2025 Clinical Data: R SHOULDER PAIN Comparison: None. Findings: No fractures or dislocations are seen. Mild glenohumeral joint irregularity is seen. The AC joint shows resection of a distal portion of the clavicle.. The adjacent right clavicle, right scapula and ribs are normal. The soft tissues are unremarkable. XR/XR shoulder RT min 2V* 99133 Impression: 1. Resection of distal right clavicle. 2. 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
--- NOTE | 2025-03-17 10:36 | XR_ITS ---
WS: [email or web address] Left foot, 3 views, 03/17/2025 Clinical Data: BILATERAL FOOT PAIN Comparison: None. Findings: No fractures or dislocations are seen. No bone destruction or erosion is noted. The joint spaces and soft tissues are normal. There is flexion deformity of the left second through fifth toes. XR/XR foot LT min 3V* [id number] Impression: Flexion deformities of the left second through fifth toes.
--- NOTE | 2025-03-17 10:36 | XR_ITS ---
WS: [email or web address] Lumbar spine, 5 views including both obliques, 03/17/2025 Clinical Data: LBP Comparison: None. Findings: No compression fractures are seen. There is disc narrowing at L3-L4, L4-L5 and L5-S1. The oblique images show no spondylolysis. There is facet joint arthritis from L3-L4 through L5-S1. Moderate osteoarthritis is present at all the lumbar vertebral bodies. There is a retrolisthesis of 0.5 cm of L2 on L3. The transverse processes and SI joints are normal. There are are laminectomies at L3 and L4. There is a dextroscoliosis. XR/XR lumbar spine min 4V [id number] Impression: Multiple chronic changes of the lumbar spine.
--- NOTE | 2025-03-17 10:37 | XR_ITS ---
WS: [email or web address] Right foot, 3 views, 03/17/2025 Clinical Data: BILATERAL FOOT PAIN Comparison: Right foot, 04/20/2024 Findings: No fractures or dislocations are seen. There is an osteotomy of the base of the right first proximal phalanx with a medial staple. There are fusions of the right second and third toe PIP joints. There is medial subluxation of the right second proximal phalanx. There is osteoarthritis of the right first MTP joint with a small bunion. There is a plantar spur. The soft tissues are normal. XR/XR foot RT min 3V* [id number] Impression: Chronic stable changes of the right foot.
== END 2025-03-17 10:22 | disposition home or self-care (01) ==
LOC: RAD 10:22
PROVIDERS: PCP Family Medicine; Visit Provider Nurse Practitioner Family
DX: L57.8 Other skin changes due to chronic exposure to nonionizing radiation (principal); B07.8 Other viral warts; R20.8 Other disturbances of skin sensation; Z78.9 Other specified health status
CPT/HCPCS: 17004; 70210; 72110; 73030; 73630; 99203

== ENCOUNTER → 2025-03-17 14:16 | Outpatient (BNVA) | payer OTHER, SELFPAY | PROVIDERS: PCP Family Medicine; Visit Provider Nurse Practitioner Family | DX: L57.8 Other skin changes due to chronic exposure to nonionizing radiation (principal); B07.8 Other viral warts; R20.8 Other disturbances of skin sensation; Z78.9 Other specified health status | CPT/HCPCS: 17004; 99203 ==

== ENCOUNTER → 2025-03-25 12:58 | Outpatient (BNVA) | payer OTHER, SELFPAY | PROVIDERS: PCP Family Medicine; Visit Provider Dermatology | DX: D48.5 Neoplasm of uncertain behavior of skin (principal); R20.8 Other disturbances of skin sensation; R23.8 Other skin changes; L53.8 Other specified erythematous conditions | CPT/HCPCS: 11402; 12032 ==

== ENCOUNTER → 2025-05-10 10:40 | Outpatient (BNVA) | payer OTHER, SELFPAY | PROVIDERS: PCP Family Medicine; Visit Provider Podiatrist Foot & Ankle Surgery | DX: L60.0 Ingrowing nail (principal); G57.61 Lesion of plantar nerve, right lower limb; G57.62 Lesion of plantar nerve, left lower limb | CPT/HCPCS: 99213 ==